=== PATIENT | male | born 1955 | race Caucasian/White ===

== ENCOUNTER → 2017-09-20 08:49 | Outpatient (CLI) | payer MEDICARE, SELFPAY ==
[2017-09-20 12:21] LABS: Absolute Lymphocyte Count 1.12 X10^3/ul (0.83-4.51); Absolute Neutrophil Count 4.4 X10^3/uL (2.0-7.7); Basophil# 0.04 X10^3/uL; Basophil% 0.6 % (0-1); Eosinophil# 0.05 X10^3/uL; Eosinophils% 0.8 % (0-5); Hematocrit 45.6 % (40-54); Hemoglobin 15.4 g/dl (13.0-16.5); Lymphocyte # 1.12 X10^3/ul (4.0); Mean Corp Hgb Conc 33.8 g/gl (32-36); Mean Corpuscular Hgb 31.9 pg (27.0-32.0); Mean Corpuscular Volume 94.4 fL (80-94); Mean Platelet Vol. 10.5 fl (6.2-12.0); Neutrophil # 4.37 X10^3/uL (2.7-7.7); Neutrophil % 70.2 % (47-70); Platelet Count 234 K/mm3 (150-450); RBC Distribution Width CV 14.2 % (11.6-14.6); RBC Distribution Width SD 47.2 fl (35.1-43.9); Red Blood Count 4.83 M/mm3 (4.6-6.2); White Blood Count 6.2 K/mm3 (4.4-11.0)
[2017-09-20 12:22] LABS: POSITIVE COUNT YES; POSITIVE DIFFERENTIAL NO; POSITIVE MORPHOLOGY YES
[2017-09-20 12:42] LABS: Insulin 31.7 mU/L (2.6-37.6)
[2017-09-20 13:15] LABS: Hemoglobin A1c 5.9 % (4.2-6.3)
[2017-09-20 13:18] LABS: Vitamin D,25 Hydroxy 17.9 ng/mL (29.95-100.01)
[2017-09-20 13:36] LABS: ALB/GLOB Ratio 1.3 RATIO (0.9-2.4); AST(SGOT) 29 U/L (15-37); Alanine Aminotransfer ALT/SGPT 58 U/L (16-61); Albumin, Serum 4.4 g/dL (3.2-5.0); Alkaline Phosphatase 55 U/L (45-117); Anion Gap 7 (5-15); BUN 21 mg/dL (7-18); BUN/Creat Ratio 16.5 RATIO (10-20); Calcium,Total 9.1 mg/dL (8.5-10.1); Chloride 108 mmol/L (98-107); Creatinine, Serum 1.27 mg/dL (0.70-1.30); EST Glomerular Filtration Rate 62 mL/min (>60); Est Glom Filt Rate - Afr Amer 74 mL/min (>60); Free T3 3.4 pg/mL (2.18-3.98); Globulin 3.5 g/dL (2.2-4.2); Glucose 112 mg/dL (74-106); Potassium 4.3 mmol/L (3.5-5.1); Protein, Total 7.9 g/dL (6.4-8.2); Sodium Level 138 mmol/L (136-145); T4 Free Direct 1.01 ng/dL (0.76-1.46); Thyroid Stim Hormone (TSH) 0.72 uIU/mL (0.358-3.74)
[2017-09-21 12:02] LABS: Pathologist Review Reviewed
[2017-09-22 11:32] LABS: Lipoprotein A <10 nmol/L (<75)
[2017-09-23 20:07] LABS: CHOLESTEROL TOTAL 271 mg/dL (100-199); HDL-C 24 mg/dL (>39); SMALL LDL-P 1839 nmol/L (<=527); TRIGLYCERIDES 877 mg/dL (0-149)
[2017-09-24 11:31] LABS: LDL SIZE 19.8 nm (>20.5); LDL-P 2361 nmol/L (<1000); LP-IR SCORE ** 81 (<=45)
== END ==
PROVIDERS: Family Provider Family Medicine; PCP Family Medicine; Visit Provider Internal Medicine Endocrinology, Diabetes & Metabolism
DX: E78.1 Pure hyperglyceridemia (principal)
CPT/HCPCS: 36415; 80053; 80061; 82306; 83036; 83525; 83695; 83704; 84439; 84443; 84481; 85025

== ENCOUNTER → 2017-11-24 08:54 | Outpatient (CLI) | payer MEDICARE, SELFPAY ==
[2017-11-24 12:01] LABS: Absolute Lymphocyte Count 1.47 X10^3/ul (0.83-4.51); Absolute Neutrophil Count 4.2 X10^3/uL (2.0-7.7); Basophil# 0.04 X10^3/uL; Basophil% 0.6 % (0-1); Eosinophil# 0.07 X10^3/uL; Eosinophils% 1.1 % (0-5); Hematocrit 45.7 % (40-54); Lymphocyte # 1.47 X10^3/ul (4.0); Lymphocyte % 22.8 % (19-41); Mean Corp Hgb Conc 32.8 g/gl (32-36); Mean Corpuscular Hgb 31.1 pg (27.0-32.0); Mean Corpuscular Volume 94.6 fL (80-94); Monocyte# 0.55 X10^3/uL; Monocyte% 8.5 % (0-10); Neutrophil # 4.23 X10^3/uL (2.7-7.7); Neutrophil % 65.6 % (47-70); Platelet Count 265 K/mm3 (150-450); RBC Distribution Width CV 14.1 % (11.6-14.6); RBC Distribution Width SD 47.6 fl (35.1-43.9); Red Blood Count 4.83 M/mm3 (4.6-6.2); White Blood Count 6.5 K/mm3 (4.4-11.0)
[2017-11-24 12:06] LABS: POSITIVE COUNT NO; POSITIVE DIFFERENTIAL NO; POSITIVE MORPHOLOGY NO
[2017-11-24 12:31] LABS: Hemoglobin A1c 5.9 % (4.2-6.3)
[2017-11-24 12:38] LABS: ALB/GLOB Ratio 1.1 RATIO (0.9-2.4); AST(SGOT) 35 U/L (15-37); Alanine Aminotransfer ALT/SGPT 77 U/L (16-61); Albumin, Serum 4.5 g/dL (3.2-5.0); Alkaline Phosphatase 48 U/L (45-117); Anion Gap 7 (5-15); BUN 22 mg/dL (7-18); Calcium,Total 10.2 mg/dL (8.5-10.1); Chloride 106 mmol/L (98-107); Creatinine, Serum 1.22 mg/dL (0.70-1.30); EST Glomerular Filtration Rate 64 mL/min (>60); Est Glom Filt Rate - Afr Amer 78 mL/min (>60); Glucose 87 mg/dL (74-106); Potassium 4.6 mmol/L (3.5-5.1); Protein, Total 8.5 g/dL (6.4-8.2); Sodium Level 139 mmol/L (136-145); Thyroid Stim Hormone (TSH) 1.19 uIU/mL (0.358-3.74)
== END ==
PROVIDERS: PCP Family Medicine; Visit Provider Internal Medicine Endocrinology, Diabetes & Metabolism
DX: R73.03 Prediabetes (principal)
CPT/HCPCS: 36415; 80053; 83036; 84443; 85025

== ENCOUNTER → 2017-12-25 16:07 | Outpatient (CLI) | payer OTHER, SELFPAY ==
--- NOTE | 2017-12-25 16:14 | MRI_ITS ---
STUDY: MRI LUMBAR SPINE WITHOUT CONTRAST REASON FOR EXAM: Male, 62 years old. DDD,DISC DISPLACEMENT. Left foot numbness, stabbing back pain and lateral knee pain. PRior surgery 1997. TECHNIQUE: Standardized fat and water weighted pulse sequences were obtained in the sagittal and axial planes. COMPARISON: None FINDINGS: T12-L1: Normal endplates. Normal disc height, hydration and morphology. Normal bilateral facet joints. Normal central canal and bilateral lateral recesses. Normal bilateral intervertebral neural foramina. There is straightening of the normal lumbar lordosis. There is no substantial scoliosis. Normal conus medullaris that terminates at the L1/L2 L1-2: There is mild disc space narrowing and endplate spondylosis. There is a minimal disc bulge without significant central canal or foraminal stenosis. L2-3: There is mild disc space narrowing and endplate spondylosis. There is a minimal disc bulge without significant central canal or foraminal stenosis. L3-4: There is mild disc space narrowing and endplate spondylosis. There is a moderate disc bulge with left paracentral extrusion resulting in severe left lateral recess narrowing. There is bilateral facet hypertrophy with mild central canal stenosis. There is mild bilateral foraminal stenosis. L4-5: There is moderate disc space narrowing and endplate spondylosis. There is a moderate disc bulge with small central extrusion and facet arthropathy with mild central canal stenosis. There is mild bilateral foraminal stenosis. L5-S1: There is moderate disc space narrowing and endplate spondylosis. There is minimal retrolisthesis and disc bulging without significant central stenosis. There is mild bilateral foraminal stenosis. Normal visualized sacral ala. Normal visualized paraspinous soft tissue structures. MRI/Spine Lumbar (Routine) IMPRESSION: L3/L4: Disc extrusion with severe left lateral disc narrowing. L4/L5: Small extrusion with mild central canal stenosis. Electronically Signed: Aydin Laird MD at 10:51 EDT Tel , Service support ,
== END ==
PROVIDERS: Family Provider Family Medicine; PCP Family Medicine; Visit Provider Anesthesiology Pain Medicine
DX: M51.26 Other intervertebral disc displacement, lumbar region (principal); M51.27 Other intervertebral disc displacement, lumbosacral region; M51.37 Other intervertebral disc degeneration, lumbosacral region; S33.5XXA Sprain of ligaments of lumbar spine, initial encounter; M53.2X8 Spinal instabilities, sacral and sacrococcygeal region; S33.6XXA Sprain of sacroiliac joint, initial encounter
CPT/HCPCS: 72148

== ENCOUNTER → 2018-02-07 15:54 | Outpatient (CLI) | payer MEDICARE, SELFPAY ==
[2018-02-07 16:16] LABS: CREATININE FINGERSTICK 0.8 mg/dL (0.70-1.30); EGFR FINGERSTICK > 60.0000 mL/min (>60)
== END ==
PROVIDERS: Family Provider Family Medicine; PCP Family Medicine; Visit Provider Family Medicine
DX: Z01.812 Encounter for preprocedural laboratory examination (principal); R63.4 Abnormal weight loss
CPT/HCPCS: 71260; 74177; Q9967

== ENCOUNTER → 2018-03-01 08:51 | Outpatient (CLI) | payer MEDICARE, SELFPAY ==
[2018-03-01 12:38] LABS: ALB/GLOB Ratio 1.1 RATIO (0.9-2.4); AST(SGOT) 15 U/L (15-37); Alanine Aminotransfer ALT/SGPT 29 U/L (16-61); Alkaline Phosphatase 52 U/L (45-117); Anion Gap 7 (5-15); BUN 22 mg/dL (7-18); BUN/Creat Ratio 22.7 RATIO (10-20); Calcium,Total 9.6 mg/dL (8.5-10.1); Chloride 108 mmol/L (98-107); Cholesterol 291 mg/dL (200); Creatinine, Serum 0.97 mg/dL (0.70-1.30); EST Glomerular Filtration Rate 84 mL/min (>60); Est Glom Filt Rate - Afr Amer 102 mL/min (>60); Globulin 3.5 g/dL (2.2-4.2); Glucose 112 mg/dL (74-106); High Density Lipoprotein 28 mg/dL; Potassium 4.4 mmol/L (3.5-5.1); Protein, Total 7.5 g/dL (6.4-8.2); Sodium Level 144 mmol/L (136-145); Triglycerides 510 mg/dL
[2018-03-01 12:40] LABS: Hemoglobin A1c 5.4 % (4.2-6.3)
== END ==
PROVIDERS: Family Provider Family Medicine; PCP Family Medicine; Visit Provider Internal Medicine Endocrinology, Diabetes & Metabolism
DX: E78.1 Pure hyperglyceridemia (principal)
CPT/HCPCS: 36415; 80053; 80061; 83036

== ENCOUNTER → 2018-03-26 08:35 | Outpatient (CLI) | payer MEDICARE, SELFPAY ==
--- NOTE | 2018-03-26 09:00 | PET_ITS ---
EXAMINATION: FDG PET/CT INDICATIONS: 62-year-old male with reported history of pulmonary nodularity. COMPARISON EXAMINATION: CT of the chest, abdomen and pelvis reports 02/07/2018 INDEX LESION SIZE SUV INTERPRETATION Right lower anteromedial lung field, right middle lobe 30.6 (frame 167) 4.5 Fulfills quantitative criteria for viable neoplasm Carinal, subcarinal mediastinum, right thoracic perihilum, aorticopulmonary window 24.4-mm (largest) (frame 177) 7.5 (max) Fulfills quantitative criteria for viable neoplasm Right and left hemithorax pulmonary parenchyma 1.8 (max) Quantitative criteria for viable neoplasm are not fulfilled TECHNIQUE: Following the intravenous administration of mCi of F-18 deoxyglucose via the , multiplanar image acquisitions of the neck, chest, abdomen and pelvis to level of mid thigh, obtained at one hour post radiopharmaceutical administration contemporaneously interpreted with the current CT of the neck, chest, abdomen and pelvis to level of mid thigh, dated 03/26/18 via coregistration reveal: FINDINGS: 1. Enhanced FDG concentration is defined in the right lower anteromedial lung field, right middle lobe demonstrating a calculated maximum standard uptake value of 4.5. The maximal axial diameter of the corresponding parenchyma density on review of CT of the chest dated 03/26/2018 is 30.6 mm. 2. Facilitated radiopharmaceutical uptake is demonstrated in the carinal and subcarinal mediastinum, right thoracic perihilum and aorticopulmonary window. The calculated maximum standard uptake value is 7.5. The largest corresponding soft tissue density demonstrates a maximal axial diameter of 24.4 millimeters. 3. There is mild increased glucose concentration observed in the right mid posterolateral hemithorax pulmonary parenchyma, right lower lobe, the left lower lateral hemithorax pulmonary parenchyma, left lower lobe generating a calculated maximal standard uptake value of 1.8. Quantitative criteria for viable neoplasm are not fulfilled. 4. Normal physiologic distribution of the radiopharmaceutical is apparent in the hepatic and splenic parenchyma, both renal units, bladder and visualized intestinal tract. The visualized portion of the cerebral cortex demonstrate symmetric and preserved glucose metabolism. Diffuse radiopharmaceutical concentration is noted in all four quadrants of the abdomen and pelvis. Pertinent CT findings are as follows: CHEST: There are no additional parenchymal densities-nodules demonstrating quantitatively significant enhanced glucose metabolism. There is atherosclerotic calcification defined in the thoracic aorta without evidence of dilatation-aneurysm formation. Coronary arterial calcification is observed. Subcentimeter bilateral axillary soft tissue densities are ametabolic. ABDOMEN AND PELVIS: There is atherosclerotic calcification defined in the abdominal aorta without evidence of dilatation-aneurysm formation. Pelvic arterial calcification is observed. Right-left subcentimeter inguinal soft tissue densities are non-glucose avid. Colonic diverticulosis is demonstrated. Calcifications are defined in the bilateral lower hemipelvis. SKELETAL: Degenerative changes are noted in the cervical, thoracic and lumbar spine. PET/PET/CT Tumor Base -Thigh Init IMPRESSION: 1. ABNORMAL EXAMINATION INDICATIVE OF MALIGNANT VIABLE NEOPLASM. 2. Increased glucose concentration noted in the right lower anterior hemithorax, right middle lobe, fulfills quantitative criteria for viable neoplasm. (Delacruz et al, Annals of Internal Medicine, 138:724, 2003). 3. 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 (Josse et al, Journal of Clinical Oncology 16:2142, 1998). 4. Facilitated FDG uptake defined in the right mid posterolateral lung zone-right lower lobe and left lower lateral lung field, left lower lobe, do not fulfill quantitative criteria for viable neoplasm. Electronic Signature Ayush Whipple D.O. Electronically Signed: Ayush Whipple DO at 23:38 EDT Tel , Service support ,
== END ==
PROVIDERS: Family Provider Family Medicine; PCP Family Medicine; Visit Provider Family Medicine
DX: R91.1 Solitary pulmonary nodule (principal)
CPT/HCPCS: 78815; A9552

== ENCOUNTER → 2018-04-06 08:44 | Outpatient (CLI) | payer MEDICARE, SELFPAY ==
[2018-04-06 12:20] LABS: Erythrocyte Sedimentation Rate 21 mm/hr (0-20)
== END ==
PROVIDERS: Family Provider Family Medicine; PCP Family Medicine; Visit Provider Internal Medicine Pulmonary Disease
DX: R91.1 Solitary pulmonary nodule (principal); J18.9 Pneumonia, unspecified organism; R59.9 Enlarged lymph nodes, unspecified
CPT/HCPCS: 36415; 82164; 85652; 86698; 87385

== ENCOUNTER 2018-04-24 10:17 | Emergency (ER) | payer OTHER, MEDICARE, SELFPAY ==
[2018-04-24 10:18] VITALS: BP 187/119; PULSE 96; RESP 16; TEMP 36.7; O2SAT 98
--- NOTE | 2018-04-24 10:42 | ED.DCSUM_ITS ---
- ER Visit Summary Date of Service: 04/24/18 Chief Complaint: Back pain History of Present Illness: The patient is a 62 M sent from pain management Dr. Stockton for increasing left lower back pain after nerve block performed in the office at 9 AM this morning. Still with chronic back pain, on Percocet . He states he has been having increasing pain since his initial nerve block 2 months ago. He follows up today for additional nerve block, has chronic radicular pain down his left leg. States pain to the calf. Pain increase and difficulty ambulating since this procedure. Initial plan was for patient to rock picker Dilaudid from pharmacy and go back to the office for injection however he was then directed to the emergency Department for medication. Denies any loss of bowel or bladder control. States an MRI was performed recently, he has a appointment with neurosurgeon Dr. gold in 7 days. 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 Physical Examination: General: Alert and oriented ?3, uncomfortable lying on belly. Able to turn to side and back. HEENT: Normocephalic, atraumatic. Moist mucosa membranes Neck: supple, nontender. Cardiovascular: Regular rate and rhythm, no murmurs Respiratory: Normal breath sounds, symmetric, no distress Abdomen: Soft, nontender, nondistended back: has Betadine stain lower lumbar, bandaged left lower lumbar, wounds with no active bleeding or drainage. Extremities: Nontender, no edema, pulses intact ?4 Neuro: no focal neurological deficits. Test Results: [] Emergency Department Course and Treatment: Patient with no cauda equina symptoms. Status post nerve block with increasing pain. Treated with subcu Dilaudid of 2 mg. Interim did discuss with his pain management physician Dr. Stockton, report should not have complications with the injection itself and with Lovenox. He states only 25-gauge needle was used. Reports that he would increase pain management until his follow-up with the surgeon. Reevaluation patient did have some improvement was able to stand and ambulate with mild discomfort. He states cramp and spasm in his leg. Discussed option for muscle relaxer which he states he is tolerated Valium given 1 dose in the ED. He has an appointment tomorrow with Dr. Stockton. He will keep that appointment. He did not want to increase his opiates. He will discussed the plan tomorrow in the office. Treatment Plan: [] Disposition: Discharge Impression: 1. Acute on chronic back pain This note was generated with [employer] dictation software. It may contain incorrect words, spelling, and punctuation that were not noted in review of the chart prior to signing ED Disposition - Plan for ED Patient: Disposition: Home or Assisted Living Chief Complaint: Back Diagnosis: Acute exacerbation of chronic low back pain Instructions: ED Sciatica Referrals: Edward Villa MD [Primary Care Provider] - Additional Instructions: Keep appointment with Dr. Tan tomorrow to discuss your options for management of symptoms.
[2018-04-24] MEDS: HYDROmorphone 1 MG/ML Syringe 2 MG SC (10:48)
[2018-04-24] MEDS: diazePAM 5 MG Tablet PO (11:42)
== END 2018-04-24 12:16 | disposition home or self-care (01) ==
PROVIDERS: Emergency Provider Emergency Medicine; Family Provider Family Medicine; PCP Family Medicine
DX: M54.9 Dorsalgia, unspecified (principal); G89.29 Other chronic pain; E11.9 Type 2 diabetes mellitus without complications; Z79.01 Long term (current) use of anticoagulants; Z86.711 Personal history of pulmonary embolism; Z86.718 Personal history of other venous thrombosis and embolism
CPT/HCPCS: 99283

== ENCOUNTER → 2018-05-01 14:42 | Outpatient (CLI) | payer OTHER, SELFPAY ==
--- NOTE | 2018-05-01 14:44 | RAD_ITS ---
STUDY: X-RAY - LUMBAR SPINE REASON FOR EXAM: Male, 62 years old. Lower back pain. TECHNIQUE: 4 view(s) of the lumbar spine were obtained. COMPARISON: MRI of the lumbar spine, December 25, 2017. FINDINGS: Normal lumbar lordosis. There is no substantial scoliosis. There is a normal alignment of the vertebrae. There is endplate spondylosis most marked at L5-S1. There is disc space narrowing, most marked at L5-S1. There is no evidence of acute fracture or loss of vertebral axial height. The soft tissue structures are unremarkable. RAD/L/S Spine Min 4 Views IMPRESSION: Degenerative changes of the lumbar spine. Electronically Signed: Mayco Douglas DO at 20:52 EST Tel [phone], Service support ,
--- OUTSIDE RECORDS SUMMARY | 2018-06-27 06:33 | XMS RPT_ITS ---
:1955 Author Organization OHIP Support Name Relationship Address Phone JOSIE NOLAND Unavailable [address] + [place] [address] D Unavailable Unavailable Unavailable ALEXI NOLANDIE Unavailable [address] + [place] [address] D Unavailable Unavailable Unavailable ALEXI NOLANDIE Unavailable [address] + [place] [address] D Unavailable Unavailable Unavailable NOLAND, JOSIE Unavailable [address] + [place] [address] D Unavailable Unavailable Unavailable NOLAND, JOSIE Unavailable [address] + [place] [address] D Unavailable Unavailable Unavailable NOLAND, JOSIE Unavailable [address] + [place] [address] D Unavailable Unavailable Unavailable NOLAND, JOSIE Unavailable [address] + [place] [address] D Unavailable Unavailable Unavailable NOLAND, JOSIE Unavailable [address] + [place] [address] D Unavailable Unavailable Unavailable NOLAND, JOSIE Unavailable [address] + [place] [address] D Unavailable Unavailable Unavailable NOLAND, JOSIE Unavailable [address] + [place] [address] D Unavailable Unavailable Unavailable ALEXI NOLANDIE Unavailable [address] + [place] [address] D Unavailable Unavailable Unavailable NOLAND, JOSIE Unavailable [address] + [place] [address] D Unavailable Unavailable Unavailable Care Team Providers Name Role Phone Chanelle Jay Attending Unavailable Edward Villa Primary Care Unavailable Raghunathan, Chanelle N. Attending Unavailable Allen, Edward Primary Care Unavailable Ragtawny, Chanelle N. Attending Unavailable Allen, Edward Primary Care Unavailable Mayra Stockton Attending Unavailable Mayra Stockton Referring Unavailable Allen, Edward Primary Care Unavailable Allen, Edward Attending Unavailable Allen, Edward Primary Care Unavailable Allen, Edward Attending Unavailable Allen, Edward Referring Unavailable Allen, Edward Primary Care Unavailable Augietawny, Chanelle NSean Attending Unavailable Allen, Edward Primary Care Unavailable Allen, Edward Attending Unavailable Allen, Edward Primary Care Unavailable Sibilia, Kush Attending Unavailable Allen, Edward Primary Care Unavailable Allen, Edward Primary Care Unavailable Martin Wright Attending Unavailable Randa Javier Attending Unavailable Allen, Edward Referring Unavailable Randa Javier Attending Unavailable Randa Javier Referring Unavailable Allen, Edward Primary Care Unavailable PROBLEMS PROBLEMS DATE TYPE CONDITION / CODE ATTENDING STATUS SOURCE 05/01/2018 Unknown M54.5 - Low back pain Randa Javier Active Jes / M54.5(ICD-10) [facility] [place] Repository 04/16/2018 Unknown R91.1 - Solitary Sibilia, Active Jes pulmonary nodule / [facility] R91.1(ICD-10) Hospital Repository 11/24/2017 Unknown R73.03 - Prediabetes / Raghunathan, Active Jes R73.03(ICD-10) [facility] [place] [facility]/20[facility]2017 Unknown E78.1 - Pure Raghunathan, Active Jes hyperglyceridemia / Chanelle N. [facility] E78.1(ICD-10) Hospital Repository PROCEDURES PROCEDURES No Procedure Records FoundRESULTS RESULTS CBC W/DIFF, AUTOMATED Collected: 05/21/2018 Status: C Source: JES 8:47 AM [facility] [place] REPOS[place] TYPE CODE TESTS RESULT OUT OF RANGE REFERENCE UNITS LAB L100.1000 4.4-11.0 K/mm3 Normal WBC 6.1 LAB L100.1200 4.6-6.2 M/mm3 Low RBC 4.50 LAB L100.1300 13.0-16.5 g/dl Normal HGB 14.2 LAB L100.1400 40-54 % Normal HCT 44.0 LAB L100.1500 80-94 fL High MCV 97.8 LAB L100.1600 27.0-32.0 pg Normal MCH 31.6 LAB L100.1700 32-36 g/gl Normal MCHC 32.3 LAB L100.1810 11.6-14.6 % Normal RDW CV 14.0 LAB L100.1820 35.1-43.9 fl High RDW SD 50.1 LAB L100.1900 150-450 K/mm3 Normal PLT 199 LAB L100.2000 6.2-12.0 fl Normal MPV 9.9 LAB L100.2100 47-70 % Normal NEUT% 61.0 LAB L100.2200 19-41 % Normal LY% 28.1 LAB L100.2300 0-10 % Normal MONO% 6.7 LAB L100.2400 0-5 % Normal EO% 1.3 LAB L100.2500 0-1 % Normal BASO% 0.3 LAB L100.2550 0.0-0.9 % High IM GRAN % 2.600 Result Comment: IG% - Immature Granulocytes (promyelocytes, myelocytes and metamyelocytes) > 1% indicates that a LEFT SHIFT is Present. LAB L100.2620 2.0-7.7 X10 3/uL Normal Absolute Neut 3.7 LAB L100.2720 0.83-4.51 X10 3/ul Normal Absolute Lymph 1.72 LAB L100.9900 Normal PATH REV Reviewed Result Comment: AMENDED REPORT 05/22/18 1444 PATH REV previously reported as: Saira velazquez Performed By: #### L100.0100 #### [facility] [address] [place], [place], [address] COMPREHENSIVE METABOLIC Collected: 05/21/2018 Status: F Source: [facility] 8:47 AM [facility] [place] REPOSITORY TYPE CODE TESTS RESULT OUT OF RANGE REFERENCE UNITS LAB L501.0100 74-106 mg/dL Normal GLU 95 Result Comment: Please note revised GLUCOSE reference range effective 2017. LAB L501.1000 7-18 mg/dL High BUN 20 LAB L501.1100 0.70-1.30 mg/dL Normal CREAT,SERUM 1.09 Result Comment: The validity of the calculated GFR AND GFRAA in patients over 70 years has not been determined. Clinical correlation is essential. LAB L501.1110 >60 mL/min Normal EST GFR 73 Result Comment: Non- GFR Calc LAB L501.1115 >60 mL/min Normal EST GFR - AA 89 Result Comment: GFR Calc LAB L501.1300 10-20 RATIO Normal BUN/CRE 18.3 LAB L501.1500 6.4-8.2 g/dL T Normal PROT 7.4 LAB L501.1800 3.2-5.0 g/dL Normal ALB 3.8 LAB L501.1950 2.2-4.2 g/dL Normal GLOB 3.6 LAB L501.2000 0.9-2.4 RATIO Normal A/G 1.1 LAB L501.2200 8.5-10.1 mg/dL CA Normal 9.5 LAB L501.4100 15-37 U/L Normal AST 17 LAB L501.4305 45-117 U/L Normal ALK P 48 LAB L501.4405 16-61 U/L Normal ALT 29 LAB L501.4600 0.20-1.00 mg/dL T Normal BILI 0.20 LAB L501.5300 136-145 mmol/L High NA 146 LAB L501.5600 3.5-5.1 mmol/L K Normal 4.2 LAB L501.5900 98-107 mmol/L High CL 108 LAB L501.6100 21.0-32.0 mmol/L Normal CO2 29.0 LAB L501.6200 5-15 Normal GAP 9 Performed By: #### L500.4050, L500.4100 #### [facility] [address] [place], [place], [address] LIPID PROFILE Collected: 05/21/2018 Status: F Source: [place] 8:47 AM [facility] [place] REPOSITORY TYPE CODE TESTS RESULT OUT OF RANGE REFERENCE UNITS LAB L501.4900 200 mg/dL High CHOL 298 Result Comment: <200 mg/dL Desirable 200-240 mg/dL Borderline >240 mg/dL High Risk LAB L501.5000 mg/dL High TRIG 576 Result Comment: The drugs N-Acetylcysteine and Metamizole may falsely depress this assay. TRIGLYCERIDE IS GREATER THAN 400 mg/dL. LDL RESULT IS INVALID AND WILL NOT BE REPORTED. Serum Triglycerides Reference Interval Normal <150 mg/dL Borderline high 150 - 199 mg/dL High 200 - 499 mg/dL Very High > or = 500 mg/dL LAB L501.6400 mg/dL Low HDL 27 Result Comment: The drugs N-Acetylcysteine and Metamizole may falsely depress this assay. Reference Range HDL <40 mg/dL Low HDL Cholesterol HDL >or= 60 mg/dL High HDL Cholesterol LAB L501.6500 0-130 mg/dL Test Normal not performed LDL LAB L501.6600 5-40 mg/dL Test Normal not performed VLDL Performed By: #### L500.4050, L500.4100 #### [facility] [address] [place], [address] HEMOGLOBIN A1C Collected: 05/21/2018 Status: F Source: [place] 8:47 AM [facility] [place] REPOSITORY TYPE CODE TESTS RESULT OUT OF RANGE REFERENCE UNITS LAB L501.9985 4.2-6.3 % Normal HGB A1C 5.5 Performed By: #### L501.9985 #### [facility] [address] [place], [address] ORTHOPEDIC VISIT Observed: 05/12/2018 Status: F Source: [place] REPORT 11:51 AM [facility] REPOSITORY [facility] [address] [place] [address] OFFICE VISIT Date of Service: 05/01/18 MR#: [id number] Acct: [id number] Name: JOE NOLAND Rep #: [id number] : 1955 Provider: Randa Javier MD Age/Sex: 62/M Location: [facility] [place] Status: Signed Intake Vital Signs05/01/18 Body Mass Index (BMI) 20.0 Intake Visit Reasons: LOW BACK PAIN Is patient in pain?: Yes Pain scale (1-10): 7 Allergies duloxetine [From Cymbalta] Allergy (Verified 05/01/18 14:24) anxiety Medications cyclobenzaprine 5 mg tablet 5 mg PO TID PRN 05/01/18 [History Confirmed 05/01/18] enoxaparin 300 mg/3 mL subcutaneous solution 60 mg SC Q12H 05/01/18 [History Confirmed 05/01/18] metformin 500 mg tablet 500 mg PO BID 05/01/18 [History Confirmed 05/01/18] oxycodone-acetaminophen 10 mg-325 mg tablet 1 tab PO Q6H PRN 05/01/18 [History Confirmed 05/01/18] PFSH Surgical History h/o back surgery (Acute) Social History Smoking Status: Never smoker HPI LOW BACK PAIN: Details: JOE NOLAND is a 62 year old RHD M here today for low back pain 10% and left buttock, lateral thigh and anterolateral calf to heel pain 90%. Patient notes that he has a work injury in 1997. He had back surgery in 1997. Patient notes that Dr Segovia had a microdiscectomy at L4-L5 which was very helpful to his pain. He denies postoperative complications. He does not recall if the original leg pain was on the right or left side. He then was caught in a machine in 2010 which made his pain worse. Patient sees Dr Stockton for injections and has for the past 5 years. Patient notes that the injections are helpful. He is unsure if he wants to continue with injections. He went to the ED following his last injection last week due to burning during the injection. Patient has increased pain with any activities, and sometimes even ambulation and sleeping. It is improved with chiropractic treatment, laying and standing. He does do a home exercise program. He is currently on percocet 10/325 BID. He has tried neurontin without relief. He states toradol helps. He last did physical therapy in , which worsened his pain. Patient has seen a chiropractor. Patient denies working currently. He takes percocet for pain. He denies bowel or bladder issues. He does not use a gait aid. He denies dexterity issues. He is disabled. 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 He has failed oral anticoagulation per the patient. 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 He has prediabetes. He deneis nicotine use. ROS Const Reports system reviewed and no additional complaints, except as docu Eyes Reports system reviewed and no additional complaints, except as docu ENT Reports system reviewed and no additional complaints, except as docu Card Reports system reviewed and no additional complaints, except as docu Resp Reports system reviewed and no additional complaints, except as docu GI Reports system reviewed and no additional complaints, except as docu Reports system reviewed and no additional complaints, except as docu Musc Reports back pain, Reports numbness, Reports radiating pain into limb Skin/Breast Reports system reviewed and no additional complaints, except as docu Neuro Yes system reviewed and no additional complaints, except as docu, Yes numbness Psych Reports system reviewed and no additional complaints, except as docu Endo Reports system reviewed and no additional complaints, except as docu Ortho Exam Spine Neuro: Yes Clonus (negative bilaterally), Bustamante's (negative bilaterally) and Babinski (downgoing bilaterally) General: alert, oriented x3 Skin: Yes healed (right sided midline incision) Capillary Refill <2sec: Yes Palpable Pulses: 2+ dp/pu pulses bilaterally Gait: normal gait, other (able to heel and toe walk. normal tandem gait) Sensory Exam: no sensory deficits noted DTR's: Rt Triceps: 2+, Lt Triceps: 2+, Rt Biceps: 2+, Lt Biceps: 2+, Rt Brachioradialis: 2+, Lt Brachioradialis: 2+, Rt Patellar: 2+, Lt Patellar: 2+, Rt Ankle: 2+, Lt Ankle: 2+ Plantar Reflexes: Downgoing: bilateral Coordination: tandem gait normal, Romberg test normal SPINE TESTING CERVICAL THORACIC LUMBAR SLR: Negative Musculoskeletal General: Yes normal gait Cervical Spine: cervical ROM normal Thoracic/Lumbar Spine: pain with thoraco-lumbar ROM (equal pain with lumbar extension and flexion), thoraco-lumbar ROM limited, paraspinal tenderness, lumbar spinal tenderness Strength 0=absent - 5=normal Deltoid R (C5): 5, Deltoid L (C5): 5, R Bicep (C5-6): 5, L Bicep (C5-6): 5, R Wrist Extensor (C6): 5, L Wrist Extensor (C6): 5, R Tricep (C7): 5, L Tricep (C7): 5, R Finger Flexors (C8): 5, L Finger Flexors (C8): 5, R First Dorsal Interossei (C8): 5, L First Dorsal Interossei (C8): 5, R Hip Flexor (L1-3): 5, L Hip Flexor (L1-3): 4, R Quadriceps (L2-4): 5, L Quadriceps (L2-4): 4, R Anterior Tibialis (L4-5): 5, L Anterior Tibialis (L4- 5): 4, R Hamstrings (L5-S1): 5, L Hamstrings (L5-S1): 5, GS (S1): 5, L GS (S1): 5, R Peroneals (S1): 5, L Peroneals (S1): 5 Assessment AND Plan Problems 1. Lumbar radiculopathy M54.16 Plan Imaging: XR lumbar spine 05/01/2018 reveals diffuse spondylosis MRI lumbar spine without contrast 12/25/2017 reveals diffuse spondylosis with left L3-4 disc herniation. evidence of prior L4 hemilaminotomy. I/R/P: 1. back pain 2. left leg pain and weakness 3. prior right L4-5 hemilaminotomy 4. history of DVt/PE on lovenox, recalcitrant to oral anticoagulants Mr. Noland presents with back pain and left leg pain. His MRI reveals lumbar radiculopathy. The natural history and course of the symptomatology of lumbar radiculopathy was discussed in detail with the patient. I answered all questions regarding the mode of onset, pathophysiology, symptoms, imaging findings, treatment options (both non-operative and operative) regarding his diagnosis. He has failed physical therapy and medications. He has near global weakness of the left lower extremity and his pain has been present for nearly 1 year. Would recommend an MRI lumbar spine with contrast given his prior history. Recommend EMG of the bilateral lower extremity given the unclear time frame of his neurological changes. Follow up after the above or sooner if issues arise. Plan of care discussed. All questions answered. The patient verbalized understanding of the disease process and agreed to the treatment plan formulated for this visit. Orders Orders: Coding Level of Care Code Off vis,new,level 4 Diagnoses Lumbar radiculopathy M54.16 05/12/18 1151 <Electronically signed by Randa Javier MD> Date Randa Javier MD Cosigner Signature: Date (if applicable) CC: Mayra Stockton MD L/S SPINE MIN 4 Observed: 05/01/2018 Status: F Source: [facility]ES VIEWS 2:44 PM [facility] REPOSITORY [facility] Imaging Services [address] [place] [place] [address] L/S Spine Min 4 Views MR#: [id number] Acct: [id number] Name: JOE NOLAND Rep #: [id number] : 1955 M 62 From: Mayco Douglas DO PCP: Edward Villa MD Status: REG CLI Study: L/S Spine Min 4 Views Date of Exam: 05/01/18 Exam# [id number] Ordering Dr: Randa Javier MD STUDY: X-RAY - LUMBAR SPINE REASON FOR EXAM: Male, 62 years old. Lower back pain. TECHNIQUE: 4 view(s) of the lumbar spine were obtained. COMPARISON: MRI of the lumbar spine, December 25, 2017. FINDINGS: Normal lumbar lordosis. There is no substantial scoliosis. There is a normal alignment of the vertebrae. There is endplate spondylosis most marked at L5-S1. There is disc space narrowing, most marked at L5-S1. There is no evidence of acute fracture or loss of vertebral axial height. The soft tissue structures are unremarkable. RAD/L/S Spine Min 4 Views IMPRESSION: Degenerative changes of the lumbar spine. Electronically Signed: Mayco Douglas DO at 20:52 EST Tel [phone], Service support , CC: Randa Javier MD; Edward Villa MD [employer] Operator: Signed EMERGENCY DEPARTMENT Observed: 04/24/2018 Status: F Source: JES SUMMARY 11:50 AM [facility] REPOSITORY [facility] Medical Records Department [address] [place] [place] [address] Emergency Department Summary 04/24/18 1038 MR#: [id number] Acct: [id number] Name: JOE NOLAND Rep #: [id number] : 1955 62 From: Martin Davis PCP: Edward Villa MD Status: REG ER - ER Visit Summary Date of Service: 04/24/18 Chief Complaint: Back pain History of Present Illness: The patient is a 62 M sent from pain management Dr. Stockton for increasing left lower back pain after nerve block performed in the office at 9 AM this morning. Still with chronic back pain, on Percocet . He states he has been having increasing pain since his initial nerve block 2 months ago. He follows up today for additional nerve block, has chronic radicular pain down his left leg. States pain to the calf. Pain increase and difficulty ambulating since this procedure. Initial plan was for patient to pharmacy picking tech Dilaudid from pharmacy and go back to the office for injection however he was then directed to the emergency Department for medication. Denies any loss of bowel or bladder control. States an MRI was performed recently, he has a appointment with neurosurgeon Dr. javier in 7 days. 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 Physical Examination: General: Alert and oriented 3, uncomfortable lying on belly. Able to turn to side and back. HEENT: Normocephalic, atraumatic. Moist mucosa membranes Neck: supple, nontender. Cardiovascular: Regular rate and rhythm, no murmurs Respiratory: Normal breath sounds, symmetric, no distress Abdomen: Soft, nontender, nondistended back: has Betadine stain lower lumbar, bandaged left lower lumbar, wounds with no active bleeding or drainage. Extremities: Nontender, no edema, pulses intact 4 Neuro: no focal neurological deficits. Test Results: [] Emergency Department Course and Treatment: Patient with no cauda equina symptoms. Status post nerve block with increasing pain. Treated with subcu Dilaudid of 2 mg. Interim did discuss with his pain management physician Dr. Stockton, report should not have complications with the injection itself and with Lovenox. He states only 25-gauge needle was used. Reports that he would increase pain management until his follow-up with the surgeon. Reevaluation patient did have some improvement was able to stand and ambulate with mild discomfort. He states cramp and spasm in his leg. Discussed option for muscle relaxer which he states he is tolerated Valium given 1 dose in the ED. He has an appointment tomorrow with Dr. Stockton. He will keep that appointment. He did not want to increase his opiates. He will discussed the plan tomorrow in the office. Treatment Plan: [] Disposition: Discharge Impression: 1. Acute on chronic back pain This note was generated with [employer] dictation software. It may contain incorrect words, spelling, and punctuation that were not noted in review of the chart prior to signing ED Disposition - Plan for ED Patient: Disposition: Home or Assisted Living Chief Complaint: Back Diagnosis: Acute exacerbation of chronic low back pain Instructions: ED Sciatica Referrals: Edward Villa MD [Primary Care Provider] - Additional Instructions: Keep appointment with Dr. Tan tomorrow to discuss your options for management of symptoms. What to do if you have Problems For any increased pain, shortness of breath, bleeding, nausea or vomiting, chest pain, or any unexpected problems, contact your Primary Care Provider. Call [facility] ([phone]) or report to the closest Emergency Room. Call 911 if necessary. 04/24/18 1150 <Electronically signed by Martin Davis> Date Martin Davis Cosigner Signature (If Indicated): Date CC: Edward Villa MD MISCELLANEOUS LAB Collected: 04/06/2018 Status: F Source: [facility] PROCEDURE 8:47 AM [facility] [place] REPOSITORY Order Comment: Comments: QFT Test(s) Ordered: [id number] TYPE CODE TESTS RESULT OUT OF RANGE REFERENCE UNITS LAB L801.1541 Normal [facility] [place] Result Comment: TEST RESULT UNITS REF INTERVAL QFT-TB Plus (Client Incubated) QuantiFERON Criteria The QuantiFERON-TB Gold Plus result is determined by subtracting the Nil value from either TB antigen (Ag) tube. The mitogen tube serves as a control for the test. QuantiFERON TB1 Ag Value 0.02 IU/mL QuantiFERON TB2 Ag Value 0.02 IU/mL QuantiFERON Nil Value 0.03 IU/mL QuantiFERON Mitogen Value >10.00 IU/mL QuantiFERON-TB Gold Plus Negative Negative The specimen received for QuantiFERON testing was incubated by the ordering institution. Specific procedures outlined in our Directory of Services and in the package insert for the QuantiFERON Gold (In Tube) test must be followed to enable for proper stimulation of cells for the production of interferon gamma. TESTING PERFORMED AT [facility]. ORIGINAL REPORT ON FILE IN LAB CONTAINS ADDITIONAL TEST SITE INFORMATION. Performed By: #### L801.1541 #### [facility] [address] [facility] [place], [place], [address] ERYTHROCYTE SED RATE Collected: 04/06/2018 Status: F Source: [facility] 8:46 AM [facility] REPOSITORY TYPE CODE TESTS RESULT OUT OF RANGE REFERENCE UNITS LAB L102.0000 0-20 mm/hr High SED RATE 21 Performed By: #### L101.9900 #### [facility] [address] [facility] [place], [address] URINE HISTOPLASMA Collected: 04/06/2018 Status: F Source: [facility] ANTIGEN 8:46 AM [facility] REPOSITORY TYPE CODE TESTS RESULT OUT OF RANGE REFERENCE UNITS LAB L3100.0902 Normal UR HISTO AG Result Comment: TEST RESULT LIMITS Histoplasma Gal'janice Ag Ur Histoplasma Gal'janice Ag Ur <0.5 <0.5 ng/mL Disclaimer: This test was developed and its performance characteristics determined by [facility]. It has not been cleared or approved by the Food and Drug Administration. Angiotensin-Converting Enzyme YUE 24 U/L 14 - 82 Histoplasma Abs, Qn, DID Negative Neg:<1:1 TESTING PERFORMED AT [facility]. ORIGINAL REPORT ON FILE IN LAB CONTAINS ADDITIONAL TEST SITE INFORMATION. Performed By: #### L3100.0902 #### [facility] (refer to report for specific site) refer to report for address and phone number PET/CT TUMOR BASE Observed: 03/26/2018 Status: F Source: [facility] INIT 5:56 AM [facility] REPOSITORY [facility] Imaging Services [address] [place] [address] PET/CT Tumor Base -Thigh Init MR#: [id number] Acct: [id number] Name: JOE NOLAND Rep #: [id number] : 1955 62 From: Ayush Whipple DO PCP: Edward Villa MD Status: REG CL Study: PET/CT Tumor Base -Thigh Init Date of Exam: 03/26/18 Exam# [id number] Ordering Dr: Edward Villa MD EXAMINATION: FDG PET/CT INDICATIONS: 62-year-old male with reported history of pulmonary nodularity. COMPARISON EXAMINATION: CT of the chest, abdomen and pelvis reports 02/07/2018 INDEX LESION SIZE SUV INTERPRETATION Right lower anteromedial lung field, right middle lobe 30.6 (frame 167) 4.5 Fulfills quantitative criteria for viable neoplasm Carinal, subcarinal mediastinum, right thoracic perihilum, aorticopulmonary window 24.4-mm (largest) (frame 177) 7.5 (max) Fulfills quantitative criteria for viable neoplasm Right and left hemithorax pulmonary parenchyma 1.8 (max) Quantitative criteria for viable neoplasm are not fulfilled TECHNIQUE: Following the intravenous administration of mCi of F-18 deoxyglucose via the , multiplanar image acquisitions of the neck, chest, abdomen and pelvis to level of mid thigh, obtained at one hour post radiopharmaceutical administration contemporaneously interpreted with the current CT of the neck, chest, abdomen and pelvis to level of mid thigh, dated 03/26/18 via coregistration reveal: FINDINGS: 1. Enhanced FDG concentration is defined in the right lower anteromedial lung field, right middle lobe demonstrating a calculated maximum standard uptake value of 4.5. The maximal axial diameter of the corresponding parenchyma density on review of CT of the chest dated 03/26/2018 is 30.6 mm. 2. Facilitated radiopharmaceutical uptake is demonstrated in the carinal and subcarinal mediastinum, right thoracic perihilum and aorticopulmonary window. The calculated maximum standard uptake value is 7.5. The largest corresponding soft tissue density demonstrates a maximal axial diameter of 24.4 millimeters. 3. There is mild increased glucose concentration observed in the right mid posterolateral hemithorax pulmonary parenchyma, right lower lobe, the left lower lateral hemithorax pulmonary parenchyma, left lower lobe generating a calculated maximal standard uptake value of 1.8. Quantitative criteria for viable neoplasm are not fulfilled. 4. Normal physiologic distribution of the radiopharmaceutical is apparent in the hepatic and splenic parenchyma, both renal units, bladder and visualized intestinal tract. The visualized portion of the cerebral cortex demonstrate symmetric and preserved glucose metabolism. Diffuse radiopharmaceutical concentration is noted in all four quadrants of the abdomen and pelvis. Pertinent CT findings are as follows: CHEST: There are no additional parenchymal densities-nodules demonstrating quantitatively significant enhanced glucose metabolism. There is atherosclerotic calcification defined in the thoracic aorta without evidence of dilatation-aneurysm formation. Coronary arterial calcification is observed. Subcentimeter bilateral axillary soft tissue densities are ametabolic. ABDOMEN AND PELVIS: There is atherosclerotic calcification defined in the abdominal aorta without evidence of dilatation-aneurysm formation. Pelvic arterial calcification is observed. Right-left subcentimeter inguinal soft tissue densities are non-glucose avid. Colonic diverticulosis is demonstrated. Calcifications are defined in the bilateral lower hemipelvis. SKELETAL: Degenerative changes are noted in the cervical, thoracic and lumbar spine. PET/PET/CT Tumor Base -Thigh Init IMPRESSION: 1. ABNORMAL EXAMINATION INDICATIVE OF MALIGNANT VIABLE NEOPLASM. 2. Increased glucose concentration noted in the right lower anterior hemithorax, right middle lobe, fulfills quantitative criteria for viable neoplasm. (Jayme et al, Annals of Internal Medicine, 138:724, 2003). 3. 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 (Josse bunch al, Journal of Clinical Oncology 16:2142, 1997). 4. Facilitated FDG uptake defined in the right mid posterolateral lung zone-right lower lobe and left lower lateral lung field, left lower lobe, do not fulfill quantitative criteria for viable neoplasm. Electronic Signature Ayush Whipple D.O. Electronically Signed: Ayush Whipple DO at 23:38 EDT Tel , Service support , CC: Edward Villa MD [employer] Equipment Operator: Signed COMPREHENSIVE METABOLIC Collected: 03/01/2018 Status: F Source: [facility] 8:53 AM [facility] REPOSITORY TYPE CODE TESTS RESULT OUT OF RANGE REFERENCE UNITS LAB L501.0100 74-106 mg/dL High GLU 112 Result Comment: Fasting Glucose result from 100 to 125 mg/dL suggests IMPAIRED HOMEOSTASIS per A.D.A. criteria. Please note revised GLUCOSE reference range effective 2017. LAB L501.1000 7-18 mg/dL High BUN 22 LAB L501.1100 0.70-1.30 mg/dL Normal CREAT,SERUM 0.97 Result Comment: The validity of the calculated GFR AND GFRAA in patients over 70 years has not been determined. Clinical correlation is essential. LAB L501.1110 >60 mL/min Normal EST GFR 84 Result Comment: Non- GFR Calc LAB L501.1115 >60 mL/min Normal EST GFR - AA 102 Result Comment: GFR Calc LAB L501.1300 10-20 RATIO High BUN/CRE 22.7 LAB L501.1500 6.4-8.2 g/dL T Normal PROT 7.5 LAB L501.1800 3.2-5.0 g/dL Normal ALB 4.0 LAB L501.1950 2.2-4.2 g/dL Normal GLOB 3.5 LAB L501.2000 0.9-2.4 RATIO Normal A/G 1.1 LAB L501.2200 8.5-10.1 mg/dL CA Normal 9.6 LAB L501.4100 15-37 U/L Normal AST 15 LAB L501.4305 45-117 U/L Normal ALK P 52 LAB L501.4405 16-61 U/L Normal ALT 29 LAB L501.4600 0.20-1.00 mg/dL T Normal BILI 0.20 LAB L501.5300 136-145 mmol/L NA Normal 144 LAB L501.5600 3.5-5.1 mmol/L K Normal 4.4 LAB L501.5900 98-107 mmol/L High CL 108 LAB L501.6100 21.0-32.0 mmol/L Normal CO2 29.0 LAB L501.6200 5-15 Normal GAP 7 Performed By: #### L500.4050, L500.4100 #### [facility] [address], [place], [id number] LIPID PROFILE Collected: 03/01/2018 Status: F Source: [facility] 8:53 AM [facility] REPOS[facility]ORY TYPE CODE TESTS RESULT OUT OF RANGE REFERENCE UNITS LAB L501.4900 200 mg/dL High CHOL 291 Result Comment: <200 mg/dL Desirable 200-240 mg/dL Borderline >240 mg/dL High Risk LAB L501.5000 mg/dL High TRIG 510 Result Comment: The drugs N-Acetylcysteine and Metamizole may falsely depress this assay. TRIGLYCERIDE IS GREATER THAN 400 mg/dL. LDL RESULT IS INVALID AND WILL NOT BE REPORTED. Serum Triglycerides Reference Interval Normal <150 mg/dL Borderline high 150 - 199 mg/dL High 200 - 499 mg/dL Very High > or = 500 mg/dL LAB L501.6400 mg/dL Low HDL 28 Result Comment: The drugs N-Acetylcysteine and Metamizole may falsely depress this assay. Reference Range HDL <40 mg/dL Low HDL Cholesterol HDL >or= 60 mg/dL High HDL Cholesterol LAB L501.6500 0-130 mg/dL Test Normal not performed LDL LAB L501.6600 5-40 mg/dL Test Normal not performed VLDL Performed By: #### L500.4050, L500.4100 #### [facility] [address], [place], [id number] HEMOGLOBIN A1C Collected: 03/01/2018 Status: F Source: [facility] 8:53 AM [facility] REPOSITORY TYPE CODE TESTS RESULT OUT OF RANGE REFERENCE UNITS LAB L501.9985 4.2-6.3 % Normal HGB A1C 5.4 Performed By: #### L501.9985 #### [facility] [address] [place], [address] CREATININE FINGERSTICK Collected: 02/07/2018 Status: F Source: [facility] 4:10 PM [facility] REPOSITORY TYPE CODE TESTS RESULT OUT OF RANGE REFERENCE UNITS LAB L9100.0210 0.70-1.30 mg/dL Normal CREATININE WB 0.8 LAB L9100.0220 >60 mL/min EGFR WB Normal > 60.0000 Performed By: #### L9100.0200 #### [facility] Point of Care [address] [place] [address] CHEST WITH CONTRAST Observed: 02/07/2018 Status: F Source: [facility] 3:59 PM [facility] REPOSITORY [facility] [address] [place] [address] Chest WITH Contrast MR#: [id number] Acct: [id number] Name: JOE NOLAND Rep #: [id number] : 1955 M 62 From: Min Mortensen MD PCP: Edward Villa MD Status: REG CLI Study: Chest WITH Contrast Date of Exam: 02/07/18 Exam# [id number] Ordering Dr: Edward Villa MD STUDY: CT CHEST WITH CONTRAST REASON FOR EXAM: Male, 62 years old. Unintended weight loss RADIATION DOSAGE (If Supplied By Facility): CTDIvol = ( 10.89 ) mGy, DLP = ( 580.05 ) mGycm TECHNIQUE: Transaxial imaging was performed following intravenous administration of 100 ml of Isovue 300 contrast material. Individualized dose optimization techniques were used for this CT. COMPARISON: 02/10/[address], 07/05/[address] FINDINGS: A suspicious spiculated nodule is present in the left lower lobe laterally measuring 11 x 9 mm on coronal image 102. Consider PET/CT versus CT guided biopsy. There is no demonstrated pleural abnormality. Normal heart and pericardium. Subcarinal adenopathy with short axis measurement of 15 mm. Normal hilar regions. Normal enhanced pulmonary arteries. Normal aorta arch and descending thoracic aorta. Normal osseous structures. Stable 8 mm enhancing focus in the right hepatic lobe. Multiple hepatic cysts. CT/Chest WITH Contrast IMPRESSION: Suspicious spiculated nodule in the left lower lobe. Consider PET/CT versus CT guided biopsy. Subcarinal adenopathy. Electronically Signed: Min Mortensen MD at 5:38 EDT Tel , Service support , CC: Edward Villa MD [employer] Operator: Signed ABDOMEN/PELVIS WITH Observed: 02/07/2018 Status: F Source: [facility] CONTRAST 3:56 PM [facility] REPOSITORY [facility] [address] [place] [address] Abdomen/Pelvis WITH Contrast MR#: [id number] Acct: [id number] Name: JOE NOLAND Rep #: [id number] : 1955 M 62 From: Obdulia Mosley MD PCP: Edward Villa MD Status: REG CLI Study: Abdomen/Pelvis WITH Contrast Date of Exam: 02/07/18 Exam# [id number] Ordering Dr: Edward Villa MD STUDY: CT ABDOMEN AND PELVIS WITH CONTRAST REASON FOR EXAM: Male, 62 years old. An intended weight loss. RADIATION DOSAGE (If Supplied By Facility): CTDIvol = ( 10.89 ) mGy, DLP = ( 580.05 ) mGycm TECHNIQUE: Transaxial images were obtained from the dome of the diaphragm to the symphysis pubis without oral contrast. 100 ml of Isovue 300 contrast was administered. Sagittal and coronal images were reconstructed. Individualized dose optimization techniques were used for this CT. COMPARISON: July 05, 2013 FINDINGS: There is minimal stable bibasilar atelectasis and/or scarring. The visualized portions of the heart are within normal limits. There are scattered stable subcentimeter low-attenuation foci within the liver which may reflect underlying hemangiomas and/or cysts. Normal gallbladder and extrahepatic biliary system. Normal spleen. Normal pancreas. Normal bilateral adrenal glands. There are too small to characterize low-attenuation foci arising from the kidneys that likely reflect underlying cysts. Normal visualized stomach. Normal small intestine. There are scattered colonic diverticula. There is non-visualization of the appendix. There is diffuse atherosclerotic calcification of the abdominal aorta, without a demonstrated aneurysm. Normal inferior vena cava. Normal retroperitoneum. Normal urinary bladder. There is enlargement of the prostate gland. Normal abdominal wall. There are diffuse degenerative changes of the visualized lumbar spine. CT/Abdomen/Pelvis WITH Contrast IMPRESSION: Atherosclerosis. Degenerative changes. Enlarged prostate gland. Colonic diverticulosis. Electronically Signed: Obdulia Mosley MD at 16:58 EDT Tel , Service support , CC: Edward Villa MD [employer] Operator: Signed SPINE LUMBAR Observed: 12/25/2017 Status: F Source: [facility] (ROUTINE) 4:17 PM [facility] REPOSITORY [facility] [address] [place] [address] Spine Lumbar (Routine) MR#: [id number] Acct: [id number] Name: JOE NOLAND Rep #: [id number] : 1955 M 62 From: Aydin Laird PCP: Edward Villa MD Status: REG CLI Study: Spine Lumbar (Routine) Date of Exam: 12/25/17 Exam# [id number] Ordering Dr: Mayra Stockton MD STUDY: MRI LUMBAR SPINE WITHOUT CONTRAST REASON FOR EXAM: Male, 62 years old. DDD,DISC DISPLACEMENT. Left foot numbness, stabbing back pain and lateral knee pain. PRior surgery 1997. TECHNIQUE: Standardized fat and water weighted pulse sequences were obtained in the sagittal and axial planes. COMPARISON: None FINDINGS: T12-L1: Normal endplates. Normal disc height, hydration and morphology. Normal bilateral facet joints. Normal central canal and bilateral lateral recesses. Normal bilateral intervertebral neural foramina. There is straightening of the normal lumbar lordosis. There is no substantial scoliosis. Normal conus medullaris that terminates at the L1/L2 L1-2: There is mild disc space narrowing and endplate spondylosis. There is a minimal disc bulge without significant central canal or foraminal stenosis. L2-3: There is mild disc space narrowing and endplate spondylosis. There is a minimal disc bulge without significant central canal or foraminal stenosis. L3-4: There is mild disc space narrowing and endplate spondylosis. There is a moderate disc bulge with left paracentral extrusion resulting in severe left lateral recess narrowing. There is bilateral facet hypertrophy with mild central canal stenosis. There is mild bilateral foraminal stenosis. L4-5: There is moderate disc space narrowing and endplate spondylosis. There is a moderate disc bulge with small central extrusion and facet arthropathy with mild central canal stenosis. There is mild bilateral foraminal stenosis. L5-S1: There is moderate disc space narrowing and endplate spondylosis. There is minimal retrolisthesis and disc bulging without significant central stenosis. There is mild bilateral foraminal stenosis. Normal visualized sacral ala. Normal visualized paraspinous soft tissue structures. MRI/Spine Lumbar (Routine) IMPRESSION: L3/L4: Disc extrusion with severe left lateral disc narrowing. L4/L5: Small extrusion with mild central canal stenosis. Electronically Signed: Aydin Laird MD at 10:51 EDT Tel , Service support , CC: Mayra Stockton MD; Edward Villa MD [employer] Operator: Signed CBC W/DIFF, AUTOMATED Collected: 11/24/2017 Status: F Source: [facility] 9:00 AM [facility]POSIT[facility] TYPE CODE TESTS RESULT OUT OF RANGE REFERENCE UNITS LAB L100.1000 4.4-11.0 K/mm3 Normal WBC 6.5 LAB L100.1200 4.6-6.2 M/mm3 Normal RBC 4.83 LAB L100.1300 13.0-16.5 g/dl Normal HGB 15.0 LAB L100.1400 40-54 % Normal HCT 45.7 LAB L100.1500 80-94 fL High MCV 94.6 LAB L100.1600 27.0-32.0 pg Normal MCH 31.1 LAB L100.1700 32-36 g/gl Normal MCHC 32.8 LAB L100.1810 11.6-14.6 % Normal RDW CV 14.1 LAB L100.1820 35.1-43.9 fl High RDW SD 47.6 LAB L100.1900 150-450 K/mm3 Normal PLT 265 LAB L100.2000 6.2-12.0 fl Normal MPV 10.0 LAB L100.2100 47-70 % Normal NEUT% 65.6 LAB L100.2200 19-41 % Normal LY% 22.8 LAB L100.2300 0-10 % Normal MONO% 8.5 LAB L100.2400 0-5 % Normal EO% 1.1 LAB L100.2500 0-1 % Normal BASO% 0.6 LAB L100.2550 0.0-0.9 % High IM GRAN % 1.400 Result Comment: IG% - Immature Granulocytes (promyelocytes, myelocytes and metamyelocytes) > 1% indicates that a LEFT SHIFT is Present. LAB L100.2620 2.0-7.7 X10 3/uL Normal Absolute Neut 4.2 LAB L100.2720 0.83-4.51 X10 3/ul Normal Absolute Lymph 1.47 Performed By: #### L100.0100 #### [facility] [address] [place], [place], [id number] HEMOGLOBIN A1C Collected: 11/24/2017 Status: F Source: [facility] 9:00 AM [facility]POSIT[facility] TYPE CODE TESTS RESULT OUT OF RANGE REFERENCE UNITS LAB L501.9985 4.2-6.3 % Normal HGB A1C 5.9 Performed By: #### L501.9985 #### [facility] [address], [address] COMPREHENSIVE METABOLIC Collected: 11/24/2017 Status: F Source: [facility] 9:00 AM [facility]POSIT[facility] TYPE CODE TESTS RESULT OUT OF RANGE REFERENCE UNITS LAB L501.0100 74-106 mg/dL Normal GLU 87 Result Comment: Please note revised GLUCOSE reference range effective 2017. LAB L501.1000 7-18 mg/dL High BUN 22 LAB L501.1100 0.70-1.30 mg/dL Normal CREAT,SERUM 1.22 Result Comment: The validity of the calculated GFR AND GFRAA in patients over 70 years has not been determined. Clinical correlation is essential. LAB L501.1110 >60 mL/min Normal EST GFR 64 Result Comment: Non- GFR Calc LAB L501.1115 >60 mL/min Normal EST GFR - AA 78 Result Comment: GFR Calc LAB L501.1300 10-20 RATIO Normal BUN/CRE 18.0 LAB L501.1500 6.4-8.2 g/dL High T PROT 8.5 LAB L501.1800 3.2-5.0 g/dL Normal ALB 4.5 LAB L501.1950 2.2-4.2 g/dL Normal GLOB 4.0 LAB L501.2000 0.9-2.4 RATIO Normal A/G 1.1 LAB L501.2200 8.5-10.1 mg/dL High CA 10.2 LAB L501.4100 15-37 U/L Normal AST 35 Result Comment: Slight Hemolysis, Result may be falsely increased. LAB L501.4305 45-117 U/L Normal ALK P 48 LAB L501.4405 16-61 U/L High ALT 77 LAB L501.4600 0.20-1.00 mg/dL Normal T BILI 0.40 LAB L501.5300 136-145 mmol/L Normal NA 139 LAB L501.5600 3.5-5.1 mmol/L Normal K 4.6 Result Comment: Slight Hemolysis, Result may be falsely increased. LAB L501.5900 98-107 mmol/L Normal CL 106 LAB L501.6100 21.0-32.0 mmol/L Normal CO2 26.0 LAB L501.6200 5-15 Normal 7 GAP Performed By: #### L500.4050, L501.9520 #### [facility] [address] [place], [place], [address] THYROID STIM HORMONE Collected: 11/24/2017 Status: F Source: [facility] ([facility]) 9:00 AM [facility] REPOSITORY TYPE CODE TESTS RESULT OUT OF RANGE REFERENCE UNITS LAB L501.9520 0.358-3.74 uIU/mL Normal TSH 1.19 Performed By: #### L500.4050, L501.9520 #### [facility] [address] [facility] [place], [address] CBC W/DIFF, AUTOMATED Collected: 09/20/2017 Status: C Source: [facility] 8:53 AM [facility] REPOSITORY TYPE CODE TESTS RESULT OUT OF RANGE REFERENCE UNITS LAB L100.1000 4.4-11.0 K/mm3 Normal WBC 6.2 LAB L100.1200 4.6-6.2 M/mm3 Normal RBC 4.83 LAB L100.1300 13.0-16.5 g/dl Normal HGB 15.4 LAB L100.1400 40-54 % Normal HCT 45.6 LAB L100.1500 80-94 fL High MCV 94.4 LAB L100.1600 27.0-32.0 pg Normal MCH 31.9 LAB L100.1700 32-36 g/gl Normal MCHC 33.8 LAB L100.1810 11.6-14.6 % Normal RDW CV 14.2 LAB L100.1820 35.1-43.9 fl High RDW SD 47.2 LAB L100.1900 150-450 K/mm3 Normal PLT 234 LAB L100.2000 6.2-12.0 fl Normal MPV 10.5 LAB L100.2100 47-70 % High NEUT% 70.2 LAB L100.2200 19-41 % Low LY% 18.0 LAB L100.2300 0-10 % Normal MONO% 8.0 LAB L100.2400 0-5 % Normal EO% 0.8 LAB L100.2500 0-1 % Normal BASO% 0.6 LAB L100.2550 0.0-0.9 % High IM GRAN % 2.400 Result Comment: IG% - Immature Granulocytes (promyelocytes, myelocytes and metamyelocytes) > 1% indicates that a LEFT SHIFT is Present. LAB L100.2620 2.0-7.7 X10 3/uL Normal Absolute Neut 4.4 LAB L100.2720 0.83-4.51 X10 3/ul Normal Absolute Lymph 1.12 LAB L100.9900 Normal PATH REV Reviewed Result Comment: Neutrophilic left shift. Clinical correlation necessary. Alex Paredes M.D. 09/21/17 AMENDED REPORT 09/21/17 1201 PATH REV previously reported as: October Performed By: #### L100.0100 #### [facility] [address] [place], [address] INSULIN Collected: 09/20/2017 Status: F Source: [facility] 8:53 AM [facility] REPOSIT[facility] TYPE CODE TESTS RESULT OUT OF RANGE REFERENCE UNITS LAB [id number] 2.6-37.6 mU/L Normal Insulin 31.7 Result Comment: Please Note: INSULIN METHOD AND REFERENCE RANGE CHANGE Effective 06/15/2017. Performed By: #### [id number], L506.1000 #### [facility] [address] [place], [place], [address] VITAMIN D,25 HYDROXY Collected: 09/20/2017 Status: F Source: [facility] 8:53 AM [facility] REPOSIT[facility] TYPE CODE TESTS RESULT OUT OF REFERENCE UNITS RANGE LAB L506.1000 29.95-100.01 ng/mL Low Vitamin D 17.9 25-OH Result Comment: Vitamin D 25(OH) Status Range Deficiency <20 ng/mL (50nmol/L) Insuffciency 20 - 30 ng/mL (50 - 75 nmol/L) Sufficiency 30 - 100 ng/mL (75 - 250 nmol/L) Toxicity >100 ng/mL (>250 nmol/L) Performed By: #### [id number], L506.1000 #### [facility] [address] [place], [place], [address] HEMOGLOBIN A1C Collected: 09/20/2017 Status: F Source: [facility] 8:53 AM [facility] REPOSITORY TYPE CODE TESTS RESULT OUT OF RANGE REFERENCE UNITS LAB L501.9985 4.2-6.3 % Normal HGB A1C 5.9 Performed By: #### L501.9985 #### [facility] [place], [address] COMPREHENSIVE METABOLIC Collected: 09/20/2017 Status: F Source: [facility] 8:53 AM [facility] REPOSITORY TYPE CODE TESTS RESULT OUT OF RANGE REFERENCE UNITS LAB L501.0100 74-106 mg/dL High GLU 112 Result Comment: Fasting Glucose result from 100 to 125 mg/dL suggests IMPAIRED HOMEOSTASIS per A.D.A. criteria. Please note revised GLUCOSE reference range effective 2017. LAB L501.1000 7-18 mg/dL High BUN 21 LAB L501.1100 0.70-1.30 mg/dL Normal CREAT,SERUM 1.27 Result Comment: The validity of the calculated GFR AND GFRAA in patients over 70 years has not been determined. Clinical correlation is essential. LAB L501.1110 >60 mL/min Normal EST GFR 62 Result Comment: Non- GFR Calc LAB L501.1115 >60 mL/min Normal EST GFR - AA 74 Result Comment: GFR Calc LAB L501.1300 10-20 RATIO Normal BUN/CRE 16.5 LAB L501.1500 6.4-8.2 g/dL T Normal PROT 7.9 LAB L501.1800 3.2-5.0 g/dL Normal ALB 4.4 LAB L501.1950 2.2-4.2 g/dL Normal GLOB 3.5 LAB L501.2000 0.9-2.4 RATIO Normal A/G 1.3 LAB L501.2200 8.5-10.1 mg/dL CA Normal 9.1 LAB L501.4100 15-37 U/L Normal AST 29 Result Comment: Slight Hemolysis, Result may be falsely increased. LAB L501.4305 45-117 U/L Normal ALK P 55 LAB L501.4405 16-61 U/L Normal ALT 58 LAB L501.4600 0.20-1.00 mg/dL Normal T BILI 0.50 LAB L501.5300 136-145 mmol/L Normal NA 138 LAB L501.5600 3.5-5.1 mmol/L Normal K 4.3 Result Comment: Slight Hemolysis, Result may be falsely increased. LAB L501.5900 98-107 mmol/L High CL 108 LAB L501.6100 21.0-32.0 mmol/L Normal CO2 23.0 LAB L501.6200 5-15 Normal 7 GAP Performed By: #### L500.4050, L501.42999, L501.9520, L506.0400 #### [facility] [address] [place], [address] FREE T3 Collected: 09/20/2017 Status: F Source: [facility] 8:53 AM [facility] REPOSITORY TYPE CODE TESTS RESULT OUT OF RANGE REFERENCE UNITS LAB L501.96821 2.18-3.98 pg/mL Normal FREE T3 3.4 Performed By: #### L500.4050, L501.11397, L501.9520, L506.0400 #### [facility] [address] [place], [place], [address] THYROID STIM HORMONE Collected: 09/20/2017 Status: F Source: [facility] ([facility]) 8:53 AM [facility] REPOSITORY TYPE CODE TESTS RESULT OUT OF RANGE REFERENCE UNITS LAB L501.9520 0.358-3.74 uIU/mL Normal TSH 0.72 Performed By: #### L500.4050, L501.80152, L501.9520, L506.0400 #### [facility] [address] [place], [address] T4 FREE DIRECT Collected: 09/20/2017 Status: F Source: [facility] 8:53 AM [facility] REPOSITORY TYPE CODE TESTS RESULT OUT OF RANGE REFERENCE UNITS LAB L506.0400 0.76-1.46 ng/dL Normal T4 FREE 1.01 DIRECT Performed By: #### L500.4050, L501.58451, L501.9520, L506.0400 #### [facility] [address] [place], [address] LIPOPROTEIN A Collected: 09/20/2017 Status: F Source: [facility] 8:53 AM [facility] REPOSIT[facility] TYPE CODE TESTS RESULT OUT OF RANGE REFERENCE UNITS LAB L3400.4600 <75 nmol/L Lipoprotein Normal A <10 Result Comment: Note: Values greater than or equal to 75 nmol/L may indicate an independent risk factor for CHD, but must be evaluated with caution when applied to non- populations due to the influence of genetic factors on Lp(a) across ethnicities. Performed at: - [facility] [id number] Entry Level Civil Engineer: Jose Lamb PhD, Phone: [phone] Performed By: #### L3400.4600 #### [facility] (refer to report for specific site) refer to report for address and phone number NMR LIPOPROFILE Collected: 09/20/2017 Status: F Source: [facility] 8:53 AM [facility]POS[facility] TYPE CODE TESTS RESULT OUT OF REFERENCE UNITS RANGE LAB L3500.0250 LIPIDS Normal . LAB L3500.0300 100-199 mg/dL CHOLESTEROL High TOT 271 LAB L3500.0350 0-99 mg/dL LDL-C Normal Comment Result Comment: Triglyceride result indicated is too high for an accurate LDL cholesterol estimation. Optimal < 100 Above optimal 100 - 129 Borderline 130 - 159 High 160 - 189 Very high > 189 LDL-C is inaccurate if patient is non-fasting. LAB L3500.0400 >39 mg/dL HDL-C Low 24 LAB L3500.0450 0-149 mg/dL TRIGLYCERIDES High 877 LAB L3500.0560 <1000 nmol/L LDL-P High 2361 Result Comment: Low < 1000 Moderate 1000 - 1299 Borderline-High 1300 - 1599 High 1600 - 2000 Very High > 2000 LAB L3500.0575 Normal LD HD PARTICLES . LAB L3500.0580 >=30.5 umol/L Normal HDL-P TOTAL 39.0 LAB L3500.0585 <=527 nmol/L High SMALL LDL-P 1839 LAB L3500.0590 >20.5 nm Normal LDL SIZE 19.8 Result Comment: INTERPRETATIVE INFORMATION PARTICLE CONCENTRATION AND SIZE <--Lower CVD Risk Higher CVD Risk--> LDL AND HDL PARTICLES Percentile in Reference Population HDL-P (total) High 75th 50th 25th Low >34.9 34.9 30.5 26.7 <26.7 Small LDL-P Low 25th 50th 75th High <117 [phone] >839 LDL Size <-Large (Pattern A)-> <-Small (Pattern B)-> 23.0 20.6 20.5 19.0 Small LDL-P and LDL Size are associated with CVD risk, but not after LDL-P is taken into account. These assays were developed and their performance characteristics determined by [employer]. These assays have not been cleared by the [place] Food and Drug Administration. The clinical utility of these laboratory values have not been fully established. LAB L3500.0595 Normal INS RES/DIAB RK . LAB L3500.0875 <=45 High LP-IR SCORE 81 Result Comment: INSULIN RESISTANCE MARKER <--Insulin Sensitive Insulin Resistant--> Percentile in Reference Population Insulin Resistance Score LP-IR Score Low 25th 50th 75th High <27 27 45 63 >63 LP-IR Score is inaccurate if patient is non-fasting. The LP-IR score is a laboratory developed index that has been associated with insulin resistance and diabetes risk and should be used as one component of a physician's clinical assessment. The LP-IR score listed above has not been cleared by the [place] Food and Drug Administration. Performed By: #### L3500.0000 #### [facility] (refer to report for specific site) refer to report for address and phone number ALLERGIES ALLERGIES DATE TYPE / CODE NAME / CODE REACTION SEVERITY SOURCE 05/01/2018 Drug duloxetine/F0 ANXIETY Unknown [place] [facility] All[facility]/4160 [id number]([facility] [place] [address](SNOMED ) Repository CT) 04/24/2018 Drug No Known Unknown [facility] Allergy/4160 Allergies/F00 [place] [id number](SNOMED [id number](RXNOR Repository CT) M) ENCOUNTERS ENCOUNTERS ADMIT/DISCHARGE ACCOUNT ADMITTING ENCOUNTER LOCATION SOURCE NUMBER CLASS 05/21/2018 [id number] Ambulatory [place] 7 [facility] Hospital ing:BFHLAB Repository 05/01/2018 [id number] Ambulatory Jes [place] [address] [facility] ing:HPRAD Repository 05/01/2018/ [id number] Ambulatory BMSBuilding:B [place] 8 3 [facility] Repository 04/24/2018/ [id number] Emergency Jes [place] [address] [facility] ing:ED Repository 04/06/2018 [id number] Ambulatory [place] [address] [facility] ing:BFHLAB Repository 03/26/2018 [id number] Ambulatory [place] [address] [facility] ing:ONC Repository 03/01/2018 [id number] Ambulatory Jes [place] 5 [facility] Hospital ing:BFHLAB Repository 02/07/2018 [id number] Ambulatory Jes [place] 0 [facility] Hospital ing:CT Repository 01/26/2018 [id number] Ambulatory [place] 1 [facility] Hospital ing:RAD.FUTUR Repository E 12/25/2017 [id number] Ambulatory Jes [place] 7 [facility] Hospital ing:MRI Repository 11/24/2017 [id number] Ambulatory Jes [place] 5 [facility] Hospital ing:LAB.FUTUR Repository E 09/20/2017 [id number] Ambulatory Jes [place] 2 [facility] Hospital ing:BFHLAB Repository PAYERS PAYERS ENCOUNTER GUARANTOR PAYER SUBSCRIBER SOURCE 05/21/2018 JOE NOLAND511 Primary JOE SALINAS Insurance:MISAEL MORRISONOB: [place] PPOPolicy [id number] Hospital [address]Kay: [phone] Number: Repository [phone] ) [id number] Date:[id number] [address]PT: 05/21/2018 Secondary NOT GIVENUNK [place] Insurance:SELF PAY [facility] Number: Effective Repository Date:2018-05-21 05/01/2018 JOE NOLAND511 Primary JOE SALINAS [facility] BOW[facility]: [facility] [id number] Hospital [address]Igg: [phone] Number: Repository [phone] () [id number] Date: [facility] [address] [place], [place] [address]CT: 05/01/2018 Secondary NOT GIVENUNK [place] Insurance:SELF PAY [facility] Number: Effective Repository Date:2018-05-01 05/01/2018 JOE Freeman [id number] Primary OJE H [place] RITA Insurance:HUMANA BOWENDOB: [place] MEDICARE [facility] [id number] [id number]: [phone]) Number: Repository [phone] () [id number] Date:9928-27-67GR [address] [place] [address]ZG: 05/01/2018 Secondary NOT GIVENUNK Jes Insurance:SELF PAY [facility] Number: Effective Repository Date:2018-04-24 04/24/2018 JOE Freeman [id number] Primary JOE GEORGEERSON Insurance:[facility] BOW[facility]: [facility] [id number] [id number]: [phone] Number: Repository [phone] () [id number] Date: [facility] [address], [place] [address]BZ: 04/24/2018 Secondary JOE H Jes Insurance:HUMANA BOWENDOB: [facility] MEDICARE [facility] [id number] Hospital Number: Repository [id number] Date:4825-82-91SW [address] [place] [address]EP: 04/24/2018 Tertiary NOT GIVENUNK [place] Insurance:SELF PAY [facility] Number: Effective Repository Date:2018-04-24 04/06/2018 JOE Freeman [id number] Primary JOE Andre RITA Insurance:HUMANA BOWENDOB: [place] OPolicy [id number] Hospital [address]Oao: [phone] Number: Repository [phone] () [id number] Date:5567-18-56HL [address] [place] [address]WP: 04/06/2018 Secondary NOT GIVENUNK [place] Insurance:SELF PAY [facility] Number: Effective Repository Date:2018-04-06 03/26/2018 JOE Freeman [id number] Primary JOE Andre RITA Insurance:HUMANA BOWENDOB: [place] MEDICARE OPolicy [id number] Hospital [address]Zgy: [phone] Number: Repository [phone] () [id number] Date:0022-74-34GU [place] [id number]: 03/26/2018 Secondary NOT GIVENUNK Jes Insurance:SELF PAY [facility] Number: Effective Repository Date:2018-03-22 03/01/2018 JOE Freeman [id number] Primary JOE Andre RITA Insurance:HUMANA BOWENDOB: [place] MED[place]ARE OPolicy [id number] Hospital [address]Xbm: (330) Number: Repository [phone] () [id number] Date:3821-20-17SX [address] [address]FX: 03/01/2018 Secondary NOT GIVENUNK Jes Insurance:SELF PAY [facility] Number: Effective Repository Date:2018-03-01 02/07/2018 JOE Freeman [id number] Primary JOE Andre RITA Insurance:HUMANA BOWENDOB: [place] [id number] Hospital [address]Avj: [phone]) Number: Repository [phone] () [id number] Date:1338-54-09TU [address] [place] [address]UB: 02/07/2018 Secondary NOT GIVENUNK [place] Insurance:SELF PAY [facility] Number: Effective Repository Date:2018-01-25 01/26/2018 JOE NOLAND511 Primary JOE SALINAS Insurance:HUMANA BOWENDOB: [place] PPOPolicy [id number] Hospital [address]Qsi: [phone]) Number: Repository [phone] () [id number] Date:2406-49-53OR [address] [address]BM: 01/26/2018 Secondary NOT GIVENUNK Jes Insurance:SELF PAY [facility] Number: Effective Repository Date:2018-01-26 12/25/2017 JOE Freeman [id number] Primary JOE SALINAS [facility] BOWENDOB: [place] MGMT [facility] [id number] Hospital [address]Fyz: [phone] Number: Repository [phone] () [id number] Date: [address] [address]DZ: 12/25/2017 Secondary NOT GIVENUNK [place] Insurance:SELF PAY [facility] Number: Effective Repository Date:2017-12-22 11/24/2017 Joe Landon1 Primary Joe Salinas Insurance:HUMANA BowenDOB: [place] PPOPolicy [id number] Hospital [address]Qgs: [phone]) Number: Repository [phone] () [id number] Date:6942-58-42FA [address] [address]KJ: 11/24/2017 Secondary NOT GIVENUNK [place] Insurance:SELF PAY [facility] Number: Effective Repository Date:2017-11-24 09/20/2017 Joe Landon1 Primary Joe [place] Insurance:HUMANA BowenDOB: [place] PPOPolicy [id number] Hospital [address]Gxf: [phone]) Number: Repository [phone] () [id number] Date:2055-89-63ZS [address] [place] [address]VY: 09/20/2017 Secondary NOT GIVENUNK [place] Insurance:[facility]LF [facility] Effective Repository Date:2017-09-20
== END ==
PROVIDERS: Family Provider Family Medicine; PCP Family Medicine; Referring Provider Orthopaedic Surgery; Visit Provider Orthopaedic Surgery
DX: M54.5 Low back pain (principal)
CPT/HCPCS: 72110

== ENCOUNTER → 2018-05-21 08:46 | Outpatient (CLI) | payer MEDICARE, SELFPAY ==
[2018-05-21 12:12] LABS: Absolute Lymphocyte Count 1.72 X10^3/ul (0.83-4.51); Absolute Neutrophil Count 3.7 X10^3/uL (2.0-7.7); Basophil# 0.02 X10^3/uL; Basophil% 0.3 % (0-1); Eosinophil# 0.08 X10^3/uL; Eosinophils% 1.3 % (0-5); Hemoglobin 14.2 g/dl (13.0-16.5); Lymphocyte # 1.72 X10^3/ul (4.0); Lymphocyte % 28.1 % (19-41); Mean Corp Hgb Conc 32.3 g/gl (32-36); Mean Corpuscular Hgb 31.6 pg (27.0-32.0); Mean Corpuscular Volume 97.8 fL (80-94); Mean Platelet Vol. 9.9 fl (6.2-12.0); Monocyte# 0.41 X10^3/uL; Monocyte% 6.7 % (0-10); Neutrophil # 3.74 X10^3/uL (2.7-7.7); Platelet Count 199 K/mm3 (150-450); RBC Distribution Width SD 50.1 fl (35.1-43.9); White Blood Count 6.1 K/mm3 (4.4-11.0)
[2018-05-21 12:18] LABS: POSITIVE COUNT YES; POSITIVE DIFFERENTIAL NO; POSITIVE MORPHOLOGY YES
[2018-05-21 12:39] LABS: ALB/GLOB Ratio 1.1 RATIO (0.9-2.4); AST(SGOT) 17 U/L (15-37); Alanine Aminotransfer ALT/SGPT 29 U/L (16-61); Albumin, Serum 3.8 g/dL (3.2-5.0); Alkaline Phosphatase 48 U/L (45-117); Anion Gap 9 (5-15); BUN 20 mg/dL (7-18); BUN/Creat Ratio 18.3 RATIO (10-20); Calcium,Total 9.5 mg/dL (8.5-10.1); Chloride 108 mmol/L (98-107); Cholesterol 298 mg/dL (200); Creatinine, Serum 1.09 mg/dL (0.70-1.30); EST Glomerular Filtration Rate 73 mL/min (>60); Est Glom Filt Rate - Afr Amer 89 mL/min (>60); Globulin 3.6 g/dL (2.2-4.2); Glucose 95 mg/dL (74-106); High Density Lipoprotein 27 mg/dL; Potassium 4.2 mmol/L (3.5-5.1); Protein, Total 7.4 g/dL (6.4-8.2); Sodium Level 146 mmol/L (136-145); Triglycerides 576 mg/dL
[2018-05-21 12:43] LABS: Hemoglobin A1c 5.5 % (4.2-6.3)
[2018-05-22 14:44] LABS: Pathologist Review Reviewed
--- OUTSIDE RECORDS SUMMARY | 2018-08-22 19:56 | XMS RPT_ITS ---
:1955 Author Organization OHIP Support Name Relationship Address Phone LUDIN JOSIE Unavailable [address] + [place] [address] D Unavailable Unavailable Unavailable JOSIE NOLAND Unavailable [address] + [place] [address] D Unavailable Unavailable Unavailable JOSIE NOLAND Unavailable [address] + [place] [address] D Unavailable Unavailable Unavailable JOSIE NOLAND Unavailable [address] + [place] [address] D Unavailable Unavailable Unavailable JOSIE NOLAND Unavailable [address] + [place] [address] D Unavailable Unavailable Unavailable JOSEI NOLAND Unavailable [address] + [place] [address] D Unavailable Unavailable Unavailable JOSIE NOLAND Unavailable [address] + [place] [address] D Unavailable Unavailable Unavailable ALEXI NOLANDIE Unavailable [address] + [place] [address] D Unavailable Unavailable Unavailable JOSIE NOLAND Unavailable [address] + [place] [address] D Unavailable Unavailable Unavailable ALEXI NOLANDIE Unavailable [address] + [place] [address] D Unavailable Unavailable Unavailable JOSIE NOLAND Unavailable [address] + [place] [address] D Unavailable Unavailable Unavailable ALEXI NOLANDIE Unavailable [address] + [place] [address] D Unavailable Unavailable Unavailable ALEXI NOLANDIE Unavailable [address] + [place] [address] D Unavailable Unavailable Unavailable JOSIE NOLAND Unavailable [address] + [place] [address] D Unavailable Unavailable Unavailable Care Team Providers Name Role Phone Chanelle Jay Attending Unavailable Allen, Edward Primary Care Unavailable Randa Javier Attending Unavailable Concepcion Randa Referring Unavailable Allen, Edward Primary Care Unavailable Misty, Chanelle Rosie Attending Unavailable Allen, Edward Primary Care Unavailable Justine Jaya Rosie Attending Unavailable Allen, Edward Primary Care Unavailable Mayra Stockton Attending Unavailable BasalMayra tatum Referring Unavailable Allen, Edward Primary Care Unavailable Marcin Falk Attending Unavailable Marcin Falk Referring Unavailable Allen, Edward Primary Care Unavailable Allen, Edward Attending Unavailable Allen, Edward Primary Care Unavailable Allen, Edward Attending Unavailable Allen, Edward Referring Unavailable Allen, Edward Primary Care Unavailable Misty, Chanelle NSean Attending Unavailable Allen, Edward Primary Care Unavailable Allen, Edward Attending Unavailable Allen, Edward Primary Care Unavailable Kush Rondon Attending Unavailable Allen, Edward Primary Care Unavailable Allen, Edward Primary Care Unavailable Martin Wright Attending Unavailable Shana Javierbeth Attending Unavailable Allen, Edward Referring Unavailable Shana Javierbeth Attending Unavailable Javier, Randa Referring Unavailable Allen, Edward Primary Care Unavailable PROBLEMS PROBLEMS DATE TYPE CONDITION / CODE ATTENDING STATUS SOURCE 05/01/2018 Unknown M54.5 - Low back pain Randa Javier Active [place] / M54.5(ICD-10) [facility] [place] 04/16/2018 Unknown R91.1 - Solitary Sibilia, Active [place] pulmonary nodule / [facility] R91.1(ICD-10) Hospital Repository 11/24/2017 Unknown R73.03 - Prediabetes / Raghunathan, Active [place] R73.03(ICD-10) [facility] Repository 09/20/2017 Unknown E78.1 - Pure Raghunathan, Active [place] hyperglyceridemia / Chanelle [facility] E78.1(ICD-10) Hospital Repository PROCEDURES PROCEDURES No Procedure Records FoundRESULTS RESULTS SINUS/FACIAL BONE Observed: 06/21/2018 Status: F Source: [place] 2:26 PM [facility] REPOSITORY [facility] Imaging Services [address] [place] [address] Sinus/Facial Bone MR#: [id number] Acct: [id number] Name: JOE NOLAND Rep #: [id number] : 1955 M 62 From: Sabas Nicole MD PCP: Edward Villa MD Status: REG CLI Study: Sinus/Facial Bone Date of Exam: 06/21/18 Exam# [id number] Ordering Dr: Marcin Falk MD STUDY: CT MAXILLOFACIAL SINUSES REASON FOR EXAM: Male, 62 years old. Palpable lump right anterior aspect of RADIATION DOSAGE (If Supplied By Facility): CTDIvol = ( 29.38 ) mGy, DLP = ( 503.38 ) mGycm TECHNIQUE: The patient was scanned in a multi detector CT scanner. High resolution axial imaging was performed without the administration of intravenous contrast material. Sagittal and coronal images were reconstructed. Individualized dose optimization techniques were used for this CT. COMPARISON: None. FINDINGS: : There is a 2.4 x 1.9 cm soft tissue mass originating from the inferior aspect of the right buccinator muscle and eroding into the anterior aspect of the right maxillary ridge. The lesion forms part of the anterior floor of the right maxillary sinus. There are no inflammatory changes within the right maxillary sinus or any of the paranasal sinuses. The nasal septum is midline. The cribriform plate and sudhir mitzi are intact. The lamina papyracea, the turbinates and both ostiomeatal units are normal. . CT/Sinus/Facial Bone IMPRESSION: A benign looking 2.4 x 1.5 cm soft tissue mass originating from the inferior aspect of the right buccinator space/muscle and is eroding into the anterior aspect of the right maxillary ridge. The mass forms part of the anterior floor of the right maxillary sinus. There is however no evidence of any right maxillary sinusitis. The rest of the paranasal sinuses are normal. Further evaluation with an MRI or tissue biopsy is suggested Electronically Signed: Sabas Nicole MD at 6:28 EST Tel , Service support , CC: Marcin Falk MD; Edward Villa MD Assistant Secretary: Signed SPINE LUMBAR W/WO Observed: 05/30/2018 Status: F Source: [place] CONTRAST 4:58 PM [facility] REPOSITORY [facility] Imaging Services [address] [address] Spine Lumbar W/WO Contrast MR#: [id number] Acct: [id number] Name: JOE NOLAND Rep #: [id number] : 1955 M 62 From: Min Mortensen MD PCP: Edward Villa MD Status: REG CLI Study: Spine Lumbar W/WO Contrast Date of Exam: 05/30/18 Exam# [id number] Ordering Dr: Randa Javier MD STUDY: MRI LUMBAR SPINE WITH AND WITHOUT CONTRAST REASON FOR EXAM: Male, 62 years old. Low back pain and sharp pains in left leg TECHNIQUE: Standardized fat and water weighted pulse sequences were obtained in the sagittal and axial planes. 7 ml of Gadavist contrast material was administered for the contrast portion of the examination. COMPARISON: 12/25/2017 FINDINGS: T12-L1: Normal endplates. Normal disc height, hydration and morphology. Normal bilateral facet joints. Normal central canal and bilateral lateral recesses. Normal bilateral intervertebral neural foramina. Normal lumbar lordosis. There is no substantial scoliosis. Normal conus medullaris that terminates at the L1 level. L1-2: Bulging annulus with mild bilateral foraminal stenoses. L2-3: Bulging annulus with moderate right foraminal stenosis. L3-4: Left subarticular disc protrusion with impingement of the transiting left L4 nerve root. Bulging annulus with mild bilateral foraminal stenoses. L4-5: Bulging annulus and central disc protrusion with moderate central canal stenosis and mild bilateral foraminal stenoses. Right laminotomy. L5-S1: Bulging annulus and broad central disc protrusion with mild bilateral foraminal stenoses. Normal visualized sacral ala. Normal visualized paraspinous soft tissue structures. MRI/Spine Lumbar W/WO Contrast IMPRESSION: Stable multilevel degenerative disc disease. Disc protrusion at L3-4 with mass effect on the transiting left L4 nerve root. Electronically Signed: Min Mortensen MD at 7:13 EST Tel , Service support , CC: Randa Javier MD; Edward Villa MD Assistant Secretary: Signed CBC W/DIFF, AUTOMATED Collected: 05/21/2018 Status: C Source: [place] 8:47 AM [facility] REPOSITORY TYPE CODE TESTS RESULT OUT OF [...] 05/22/18 1444 PATH REV previously reported as: October marcus Performed By: #### L100.0100 #### [facility] [address] [place], [address] COMPREHENSIVE METABOLIC Collected: 05/21/2018 Status: F Source: [facility] 8:47 AM [facility] REPOSITORY TYPE CODE TESTS RESULT OUT OF [...] 9 Performed By: #### L500.4050, L500.4100 #### [facility] [address] [place], [place], [id number] LIPID PROFILE Collected: 05/21/2018 Status: F Source: [place] 8:47 AM [facility] REPOSITORY TYPE CODE TESTS RESULT OUT OF [...] VLDL Performed By: #### L500.4050, L500.4100 #### [facility] [address] [facility]. [place], [place], [address] HEMOGLOBIN A1C Collected: 05/21/2018 Status: F Source: [place] 8:47 AM [facility] REPOSITORY TYPE CODE TESTS RESULT OUT OF RANGE REFERENCE UNITS LAB L501.9985 4.2-6.3 % Normal HGB A1C 5.5 Performed By: #### L501.9985 #### [facility] [address] [place], [place], [address] ORTHOPEDIC VISIT Observed: 05/12/2018 Status: F Source: [place] REPORT 11:51 AM [facility] REPOSITORY [facility] [address] [place] [address] OFFICE VISIT Date of Service: 05/01/18 MR#: [id number] Acct: [id number] Name: JOE NOLAND Rep #: [id number] : 1955 Provider: Randa Javier MD Age/Sex: 62/M [place] [facility] [place] Status: Signed Intake Vital Signs05/01/18 Body Mass [...] MIN 4 Observed: 05/01/2018 Status: F Source: [facility] 2:44 PM [facility] REPOSITORY [facility] Imaging Services [address] [place] [address] L/S Spine Min 4 Views MR#: [id number] Acct: [id number] Name: JOE NOLAND Rep #: [id number] : 1955 M 62 From: Mayco Douglas DO PCP: Edward Villa MD Status: REG CLI Study: L/S Spine Min 4 Views Date of Exam: 05/01/18 Exam# [id number] Ordering Dr: Randa Javier MD STUDY: X-RAY [...] Mayco Douglas DO at 20:52 EST Tel [phone], Service support , CC: Randa Javier MD; Edward Villa MD Assistant Secretary: Signed EMERGENCY DEPARTMENT Observed: 04/24/2018 Status: F Source: [place] SUMMARY 11:50 AM [facility] REPOSITORY [facility] Medical Records Department [address] [place] [address] Emergency Department Summary 04/24/18 1038 MR#: [id number] Acct: [id number] Name: JOE NOLAND Rep #: [id number] : 1955 62 From: Martin Davis PCP: [...] procedure. Initial plan was for patient to cone picker Dilaudid from pharmacy and go back to [...] back pain This note was generated with [employer] dictation software. It may contain incorrect words, [...] problems, contact your Primary Care Provider. Call [facility] ([phone]) or report to the closest Emergency Room. Call 911 if necessary. 04/24/18 1150 <Electronically signed by Martin Davis> Date Martin Davis Cosigner Signature (If Indicated): Date CC: Edward Villa MD MISCELLANEOUS LAB Collected: 04/06/2018 Status: F Source: [place] PROCEDURE 8:47 AM [facility] REPOSITORY Order Comment: Comments: QFT Test(s) Ordered: [id number] TYPE CODE TESTS RESULT OUT OF RANGE REFERENCE UNITS LAB L801.1541 Normal [facility] [place] Result Comment: TEST RESULT UNITS [...] production of interferon gamma. TESTING PERFORMED AT [facility]. ORIGINAL REPORT ON FILE IN LAB CONTAINS ADDITIONAL TEST SITE INFORMATION. Performed By: #### L801.1541 #### [facility] [address] [place], [address] ERYTHROCYTE SED RATE Collected: 04/06/2018 Status: F Source: [place] 8:46 AM [facility] REPOSITORY TYPE CODE TESTS RESULT OUT OF RANGE REFERENCE UNITS LAB L102.0000 0-20 mm/hr High SED RATE 21 Performed By: #### L101.9900 #### [facility] [address] [place], [address] URINE HISTOPLASMA Collected: 04/06/2018 Status: F Source: [place] ANTIGEN 8:46 AM [facility] REPOSITORY TYPE CODE TESTS RESULT OUT OF RANGE REFERENCE UNITS LAB L3100.0902 Normal UR HISTO AG Result Comment: TEST RESULT LIMITS Histoplasma Gal'janice Ag Ur Histoplasma Gal'janice Ag Ur <0.5 <0.5 ng/mL Disclaimer: This test was developed and its performance characteristics determined by [facility]. It has not been cleared or approved by the Food and Drug Administration. Angiotensin-Converting Enzyme YUE 24 U/L 14 - 82 Histoplasma Abs, Qn, DID Negative Neg:<1:1 TESTING PERFORMED AT [facility]. ORIGINAL REPORT ON FILE IN LAB CONTAINS ADDITIONAL TEST SITE INFORMATION. Performed By: #### L3100.0902 #### [facility] (refer to report for specific site) refer to report for address and phone number PET/CT TUMOR BASE Observed: 03/26/2018 Status: F Source: [place] -THIGH INIT 5:56 AM [facility] REPOSITORY [facility] Imaging Services [address] [place] [address] PET/CT Tumor Base -Thigh Init MR#: [id number] Acct: [id number] Name: JOE NOLAND Rep #: [id number] : 1955 M 62 From: Ayush Whipple DO PCP: Edward Villa MD Status: REG CLI Study: PET/CT Tumor Base -Thigh Init Date of Exam: 03/26/18 Exam# [id number] Ordering Dr: Edward Villa MD EXAMINATION: FDG [...] lobe, fulfills quantitative criteria for viable neoplasm. (Delacruz et al, Annals of Internal Medicine, 138:724, 2003). 3. 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 (Josse et al, Journal of Clinical Oncology 16:2142, 1998). 4. Facilitated FDG uptake defined in the right mid posterolateral lung zone-right lower lobe and left lower lateral lung field, left lower lobe, do not fulfill quantitative criteria for viable neoplasm. Electronic Signature Ayush Whipple D.O. Electronically Signed: Ayush Whipple DO at 23:38 EDT Tel , Service support , CC: Edward Villa MD Assistant Secretary: Signed COMPREHENSIVE METABOLIC Collected: 03/01/2018 Status: F Source: [place] 8:53 AM [facility] REPOSITORY TYPE CODE TESTS RESULT OUT OF [...] 7 Performed By: #### L500.4050, L500.4100 #### [facility] [address] [place], [address] LIPID PROFILE Collected: 03/01/2018 Status: F Source: [place] 8:53 AM [facility] REPOSITORY TYPE CODE TESTS RESULT OUT OF [...] VLDL Performed By: #### L500.4050, L500.4100 #### [facility] [address] [place], [address] HEMOGLOBIN A1C Collected: 03/01/2018 Status: F Source: [place] 8:53 AM [facility] REPOSITORY TYPE CODE TESTS RESULT OUT OF RANGE REFERENCE UNITS LAB L501.9985 4.2-6.3 % Normal HGB A1C 5.4 Performed By: #### L501.9985 #### [facility] [address] [place], [address] CREATININE FINGERSTICK Collected: 02/07/2018 Status: F Source: [place] 4:10 PM [facility] REPOSITORY TYPE CODE TESTS RESULT OUT OF RANGE REFERENCE UNITS LAB L9100.0210 0.70-1.30 mg/dL Normal CREATININE WB 0.8 LAB L9100.0220 >60 mL/min EGFR WB Normal > 60.0000 Performed By: #### L9100.0200 #### [facility] Point of Care [address] [place] [address] CHEST WITH CONTRAST Observed: 02/07/2018 Status: F Source: [place] 3:59 PM [facility] REPOSITORY [facility] Imaging Services [address] [place] [address] Chest WITH Contrast MR#: [id number] Acct: [id number] Name: JOE NOLAND Rep #: [id number] : 1955 M 62 From: Min Mortensen MD PCP: Edward Villa MD Status: REG CLI Study: Chest WITH Contrast Date of Exam: 02/07/18 Exam# [id number] Ordering Dr: Edward Villa MD STUDY: CT [...] Service support , CC: Edward Villa MD Assistant Secretary: Signed ABDOMEN/PELVIS WITH Observed: 02/07/2018 Status: F Source: [place] CONTRAST 3:56 PM [facility] REPOSITORY [facility] Imaging Services [address] [place] [address] Abdomen/Pelvis WITH Contrast MR#: [id number] Acct: [id number] Name: JOE NOLAND Rep #: [id number] : 1955 M 62 From: Obdulia Mosley MD PCP: Edward Villa MD Status: REG CLI Study: Abdomen/Pelvis WITH Contrast Date of Exam: 02/07/18 Exam# [id number] Ordering Dr: Edward Villa MD STUDY: CT [...] Service support , CC: Edward Villa MD Assistant Secretary: Signed SPINE LUMBAR Observed: 12/25/2017 Status: F Source: [place] (ROUTINE) 4:17 PM [facility] REPOSITORY [facility] Imaging Services [address] [place] [address] Spine Lumbar (Routine) MR#: [id number] Acct: [id number] Name: JOE NOLAND Rep #: [id number] : 1955 M 62 From: Aydin Laird PCP: Edward Villa MD Status: REG CLI Study: Spine Lumbar (Routine) Date of Exam: 12/25/17 Exam# [id number] Ordering Dr: Mayra Stockton MD STUDY: MRI [...] CC: Mayra Stockton MD; Edward Villa MD Assistant Secretary: Signed CBC W/DIFF, AUTOMATED Collected: 11/24/2017 Status: F Source: [place] 9:00 AM [facility] REPOSITORY TYPE CODE TESTS RESULT OUT OF [...] Lymph 1.47 Performed By: #### L100.0100 #### [facility] [address] [place], [place], [address] HEMOGLOBIN A1C Collected: 11/24/2017 Status: F Source: [place] 9:00 AM [facility] REPOSITORY TYPE CODE TESTS RESULT OUT OF RANGE REFERENCE UNITS LAB L501.9985 4.2-6.3 % Normal HGB A1C 5.9 Performed By: #### L501.9985 #### [facility] [address] [place], [address] COMPREHENSIVE METABOLIC Collected: 11/24/2017 Status: F Source: [facility] 9:00 AM [facility] REPOSITORY TYPE CODE TESTS RESULT OUT OF [...] GAP Performed By: #### L500.4050, L501.9520 #### [facility] [address] [facility] [place], [address] THYROID STIM HORMONE Collected: 11/24/2017 Status: F Source: [place] (TSH) 9:00 AM [facility] REPOSITORY TYPE CODE TESTS RESULT OUT OF RANGE REFERENCE UNITS LAB L501.9520 0.358-3.74 uIU/mL Normal TSH 1.19 Performed By: #### L500.4050, L501.9520 #### [facility] [address] [place], [place], [address] CBC W/DIFF, AUTOMATED Collected: 09/20/2017 Status: C Source: [place] 8:53 AM [facility] REPOSITORY TYPE CODE TESTS RESULT OUT OF [...] as: October Performed By: #### L100.0100 #### [facility] [place], [address] INSULIN Collected: 09/20/2017 Status: F Source: [place] 8:53 AM [facility] REPOSITORY TYPE CODE TESTS RESULT OUT OF RANGE REFERENCE UNITS LAB [id number] 2.6-37.6 mU/L Normal Insulin 31.7 Result Comment: Please Note: INSULIN METHOD AND REFERENCE RANGE CHANGE Effective 06/15/2017. Performed By: #### [id number], L506.1000 #### [facility] [address] [place], [address] VITAMIN D,25 HYDROXY Collected: 09/20/2017 Status: F Source: [place] 8:53 AM [facility] REPOSITORY TYPE CODE TESTS RESULT OUT OF REFERENCE UNITS RANGE LAB L506.1000 29.95-100.01 ng/mL Low Vitamin D 17.9 25-OH Result Comment: Vitamin D 25(OH) Status Range Deficiency <20 ng/mL (50nmol/L) Insuffciency 20 - 30 ng/mL (50 - 75 nmol/L) Sufficiency 30 - 100 ng/mL (75 - 250 nmol/L) Toxicity >100 ng/mL (>250 nmol/L) Performed By: #### [id number], L506.1000 #### [facility] [address] [place], [address] HEMOGLOBIN A1C Collected: 09/20/2017 Status: F Source: [place] 8:53 AM [facility] REPOSITORY TYPE CODE TESTS RESULT OUT OF RANGE REFERENCE UNITS LAB L501.9985 4.2-6.3 % Normal HGB A1C 5.9 Performed By: #### L501.9985 #### [facility] [address] [place], [address] COMPREHENSIVE METABOLIC Collected: 09/20/2017 Status: F Source: [place] PROFIL 8:53 AM [facility] REPOSITORY TYPE CODE TESTS RESULT OUT OF [...] Normal 7 GAP Performed By: #### L500.4050, L501.44431, L501.9520, L506.0400 #### [facility] [address] [place], [address] FREE T3 Collected: 09/20/2017 Status: F Source: [place] 8:53 AM [facility] REPOSITORY TYPE CODE TESTS RESULT OUT OF RANGE REFERENCE UNITS LAB L501.61370 2.18-3.98 pg/mL Normal FREE T3 3.4 Performed By: #### L500.4050, L501.16610, L501.9520, L506.0400 #### [facility] [address] [facility] [place], [address] THYROID STIM HORMONE Collected: 09/20/2017 Status: F Source: [place] (TSH) 8:53 AM [facility] REPOSITORY TYPE CODE TESTS RESULT OUT OF RANGE REFERENCE UNITS LAB L501.9520 0.358-3.74 uIU/mL Normal TSH 0.72 Performed By: #### L500.4050, L501.92180, L501.9520, L506.0400 #### [facility] [address] [facility] [place], [address] T4 FREE DIRECT Collected: 09/20/2017 Status: F Source: [place] 8:53 AM [facility] REPOSITORY TYPE CODE TESTS RESULT OUT OF RANGE REFERENCE UNITS LAB L506.0400 0.76-1.46 ng/dL Normal T4 FREE 1.01 DIRECT Performed By: #### L500.4050, L501.28005, L501.9520, L506.0400 #### [facility] [address] [facility] [place], [address] LIPOPROTEIN A Collected: 09/20/2017 Status: F Source: [place] 8:53 AM [facility] REPOSITORY TYPE CODE TESTS RESULT OUT OF RANGE REFERENCE UNITS LAB L3400.4600 <75 nmol/L Lipoprotein Normal A <10 Result Comment: Note: Values greater than or equal to 75 nmol/L may indicate an independent risk factor for CHD, but must be evaluated with caution when applied to non- populations due to the influence of genetic factors on Lp(a) across ethnicities. Performed at: - [facility] [address] [id number] Production Associate: Jose Lamb PhD, Phone: [phone] Performed By: #### L3400.4600 #### [facility] (refer to report for specific site) refer to report for address and phone number NMR LIPOPROFILE Collected: 09/20/2017 Status: F Source: [place] 8:53 AM [facility] REPOSITORY TYPE CODE TESTS RESULT OUT OF [...] developed and their performance characteristics determined by el?. These assays have not been cleared by [...] SEVERITY SOURCE 05/01/2018 Drug duloxetine/F0 ANXIETY Unknown [place] [facility] All[facility]/4160 [id number]([facility] 54283(SNOMED RM) Repository CT) 04/24/2018 Drug No Known Unknown [place] [facility] Allergy/4160 Allergies/F00 [place] 1013902(SNOMED 3326983(RXNOR Repository CT) M) ENCOUNTERS ENCOUNTERS ADMIT/DISCHARGE ACCOUNT ADMITTING ENCOUNTER LOCATION SOURCE NUMBER CLASS 06/21/2018 [id number] Ambulatory [place] 6 [facility] ing:CT Repository 05/30/2018 [id number] Ambulatory [place] 1 [facility] ing:MRI Repository 05/21/2018 [id number] Ambulatory [place] 7 [facility] ing:BFHLAB Repository 05/01/2018 [id number] Ambulatory [place] 1 [facility] ing:HPRAD Repository 05/01/2018/ [id number] Ambulatory BMSBuilding:B [place] [facility] 3 [facility] Repository 04/24/2018/ [id number] Emergency [place] 8 8 [facility] ing:ED Repository 04/06/2018 [id number] Ambulatory [place] 5 [facility] ing:BFHLAB Repository 03/26/2018 [id number] Ambulatory [place] 4 [facility] ing:ONC Repository 03/01/2018 [id number] Ambulatory [place] 5 [facility] ing:BFHLAB Repository 02/07/2018 [id number] Ambulatory [place] 0 [facility] ing:CT Repository 01/26/2018 [id number] Ambulatory [place] 1 [facility] [facility] [place] ing:RAD.FUTUR Repository E 12/25/2017 [id number] Ambulatory Merrill Merrill 7 [facility] [place] ing:MRI Repository 11/24/2017 [id number] Ambulatory Merrill Merrill 5 [facility] [place] ing:LAB.FUTUR Repository E 09/20/2017 [id number] Ambulatory Merrill Jes 2 [facility] [place] ing:BFHLAB Repository PAYERS PAYERS ENCOUNTER GUARANTOR PAYER SUBSCRIBER SOURCE 06/21/2018 JOE NOLAND511 Primary JOE GEORGEERSON Insurance:[employer] BOW[place]: [place] PPOPolicy [id number] Hospital [address]Sib: [phone] Number: Repository [phone] () [id number] Date:7415-48-97QP [address] [address]MZ: 06/21/2018 Secondary NOT GIVENUNK Jes Insurance:SELF PAY [facility] Number: Effective Repository Date:2018-06-14 05/30/2018 JOE NOLAND511 Primary JOE SALINAS Insurance:[facility] [employer] BOWENDOB: [facility] [id number] Hospital [address]Vax: [phone]) Number: Repository [phone] ([phone]) [id number] Date: [address] [address]NM: 05/30/2018 Secondary NOT GIVENUNK Merrill Insurance:SELF PAY [facility] Number: Effective Repository Date:2018-05-17 05/21/2018 JOE [id number] Primary JOE SALINAS Insurance:[employer] BOW[place]OB: [place] PPOPolicy [id number] Hospital [address]Ndq: [phone] Number: Repository [phone] () [id number] Date:1803-71-77FN [address] [address]AT: 05/21/2018 Secondary NOT GIVENUNK Jes Insurance:SELF PAY [facility] Number: Effective Repository Date:2018-05-21 05/01/2018 JOE Freeman [id number] Primary JOE SALINAS Insurance:OB HEALTH BOWENDOB: [facility] [id number] Hospital [address]Tyu: [phone] Number: Repository [phone] () [id number] Date: [address] [place] [address]KB: 05/01/2018 Secondary NOT GIVENUNK Merrill Insurance:SELF PAY [facility] Number: Effective Repository Date:2018-05-01 05/01/2018 JOE Freeman [id number] Primary JOE SALINAS Insurance:[employer] [place]OW[place]OB: [place] PPOPolicy [id number] Hospital [address]Epv: [phone] Number: Repository [phone] () [id number] Date:3981-90-30ED [address] [address]PK: 05/01/2018 Secondary NOT GIVENUNK Jes Insurance:SELF PAY [facility] Number: Effective Repository Date:2018-04-24 04/24/2018 JOE Freeman [id number] Primary JOE SALINAS Insurance:OB HEALTH BOWENDOB: [facility] [id number] Hospital [address]Tqm: [phone] Number: Repository [phone] () [id number] Date: [address] [address]KK: 04/24/2018 Secondary JOE Lydia Jes Insurance:HU[employer] BOWENDOB: Community MEDICARE PPOPolicy [id number] Hospital Number: Repository [id number] Date:3136-12-38UJ [place] [id number]: 04/24/2018 Tertiary NOT GIVENUNK Merrill Insurance:SELF PAY [facility] Number: Effective Repository Date:2018-04-24 04/06/2018 JOE Freeman [id number] Primary JOE Andre RITA Insurance:[employer] BOWENDOB: [place] PPOPolicy [id number] Hospital [address]Fon: [phone]) Number: Repository [phone] () [id number] Date:7548-50-27KT [place] [id number]: 04/06/2018 Secondary NOT GIVENUNK Jes Insurance:SELF PAY [facility] Number: Effective Repository Date:2018-04-06 03/26/2018 JOE Freeman [id number] Primary JOE Andre RITA Insurance:HU[employer]NA BOWENDOB: [place] PPOPolicy [id number] Hospital [address]Eqo: [phone] Number: Repository [phone] () [id number] Date:9147-04-80CM [address] [address]TJ: 03/26/2018 Secondary NOT GIVENUNK Jes Insurance:SELF PAY [facility] Number: Effective Repository Date:2018-03-22 03/01/2018 JOE Freeman [id number] Primary JOE Lomelioster RITA Insurance:HU[employer]NA BOWENDOB: [place] PPOP[place]icy [id number] Hospital [address]Gub: ([phone]) Number: Repository [phone] () [id number] Date:5617-63-74SK [address] [address]UY: 03/01/2018 Secondary NOT GIVENUNK Jes Insurance:SELF PAY [facility] Number: Effective Repository Date:2018-03-01 02/07/2018 JOE Freeman [id number] Primary JOE SALINAS Insurance:HU[employer] BOWENDOB: [place] PPOP[place]icy [id number] Hospital [address]Uec: [phone]) Number: Repository [phone] () [id number] Date:7901-38-16BS [place] [id number]: 02/07/2018 Secondary NOT GIVENUNK Merrill Insurance:SELF PAY [facility] Number: Effective Repository Date:2018-01-25 01/26/2018 JOE Freeman [id number] Primary JOE SALINAS Insurance:[employer] BOWENDOB: [place] PPOP[place] [id number] Hospital [address]Dit: [phone]) Number: Repository [phone] () [id number] Date:9738-73-49FG [place] [id number]: 01/26/2018 Secondary NOT GIVENUNK Merrill Insurance:SELF PAY [facility] Number: Effective Repository Date:2018-01-26 12/25/2017 JOE Freeman [id number] Primary JOE SALINAS Insurance:[facility] BOWENDOB: [facility] [id number] Hospital [address]Itp: [phone] Number: Repository [phone] () [id number] Date: [address] [address]EQ: 12/25/2017 Secondary NOT GIVENUNK Jes Insurance:SELF PAY [facility] Number: Effective Repository Date:2017-12-22 11/24/2017 Joe Freeman [id number] Primary Joe Salinas Insurance:HUMANA [place]en[place]OB[place] PPOPolicy [id number] Hospital [address]Mkw: (330) Number: Repository [phone] () [id number] Date:8388-26-74XD [address] [place] [address]EC: 11/24/2017 Secondary NOT GIVENUNK Jes Insurance:SELF PAY [facility] Number: Effective Repository Date:2017-11-24 09/20/2017 Joe Noland511 Primary Joe Salinas Insurance:MISAEL CarrizalesOB: [place] PPOPolicy [id number] Hospital [address]Csm: (330) Number: Repository [phone] () [id number] Date:7024-27-12NC [address] [place] [address]FC: 09/20/2017 Secondary NOT GIVENUNK Merrill Insurance:SELF PAY [facility] Number: Effective Repository Date:2017-09-20
== END ==
PROVIDERS: Family Provider Family Medicine; PCP Family Medicine; Visit Provider Internal Medicine Endocrinology, Diabetes & Metabolism
DX: E78.1 Pure hyperglyceridemia (principal)
CPT/HCPCS: 36415; 80053; 80061; 83036; 85025

== ENCOUNTER → 2018-05-30 16:55 | Outpatient (CLI) | payer OTHER, SELFPAY ==
--- NOTE | 2018-05-30 17:30 | MRI_ITS ---
STUDY: MRI LUMBAR SPINE WITH AND WITHOUT CONTRAST REASON FOR EXAM: Male, 62 years old. Low back pain and sharp pains in left leg TECHNIQUE: Standardized fat and water weighted pulse sequences were obtained in the sagittal and axial planes. 7 ml of Gadavist contrast material was administered for the contrast portion of the examination. COMPARISON: 12/25/2017 FINDINGS: T12-L1: Normal endplates. Normal disc height, hydration and morphology. Normal bilateral facet joints. Normal central canal and bilateral lateral recesses. Normal bilateral intervertebral neural foramina. Normal lumbar lordosis. There is no substantial scoliosis. Normal conus medullaris that terminates at the L1 level. L1-2: Bulging annulus with mild bilateral foraminal stenoses. L2-3: Bulging annulus with moderate right foraminal stenosis. L3-4: Left subarticular disc protrusion with impingement of the transiting left L4 nerve root. Bulging annulus with mild bilateral foraminal stenoses. L4-5: Bulging annulus and central disc protrusion with moderate central canal stenosis and mild bilateral foraminal stenoses. Right laminotomy. L5-S1: Bulging annulus and broad central disc protrusion with mild bilateral foraminal stenoses. Normal visualized sacral ala. Normal visualized paraspinous soft tissue structures. MRI/Spine Lumbar W/WO Contrast IMPRESSION: Stable multilevel degenerative disc disease. Disc protrusion at L3-4 with mass effect on the transiting left L4 nerve root. Electronically Signed: Min Mortensen MD at 7:13 EST Tel , Service support ,
== END ==
PROVIDERS: Family Provider Family Medicine; PCP Family Medicine; Referring Provider Orthopaedic Surgery; Visit Provider Orthopaedic Surgery
DX: M51.36 Other intervertebral disc degeneration, lumbar region (principal); M79.605 Pain in left leg; M51.26 Other intervertebral disc displacement, lumbar region
CPT/HCPCS: 72158; A9585

== ENCOUNTER → 2018-06-21 14:21 | Outpatient (CLI) | payer MEDICARE, SELFPAY ==
--- NOTE | 2018-06-21 14:26 | CT_ITS ---
STUDY: CT MAXILLOFACIAL SINUSES REASON FOR EXAM: Male, 62 years old. Palpable lump right anterior aspect of RADIATION DOSAGE (If Supplied By Facility): CTDIvol = ( 29.38 ) mGy, DLP = ( 503.38 ) mGycm TECHNIQUE: The patient was scanned in a multi detector CT scanner. High resolution axial imaging was performed without the administration of intravenous contrast material. Sagittal and coronal images were reconstructed. Individualized dose optimization techniques were used for this CT. COMPARISON: None. FINDINGS: : There is a 2.4 x 1.9 cm soft tissue mass originating from the inferior aspect of the right buccinator muscle and eroding into the anterior aspect of the right maxillary ridge. The lesion forms part of the anterior floor of the right maxillary sinus. There are no inflammatory changes within the right maxillary sinus or any of the paranasal sinuses. The nasal septum is midline. The cribriform plate and sudhir mitzi are intact. The lamina papyracea, the turbinates and both ostiomeatal units are normal. . CT/Sinus/Facial Bone IMPRESSION: A benign looking 2.4 x 1.5 cm soft tissue mass originating from the inferior aspect of the right buccinator space/muscle and is eroding into the anterior aspect of the right maxillary ridge. The mass forms part of the anterior floor of the right maxillary sinus. There is however no evidence of any right maxillary sinusitis. The rest of the paranasal sinuses are normal. Further evaluation with an MRI or tissue biopsy is suggested Electronically Signed: Sabas Nicole MD at 6:28 EST Tel , Service support ,
--- OUTSIDE RECORDS SUMMARY | 2018-08-26 09:28 | XMS RPT_ITS ---
:1955 Author Organization OHIP Support Name Relationship Address Phone LUDIN JOSIE Unavailable [address] + [place] [address] D Unavailable Unavailable Unavailable JOSIE NOLAND Unavailable [address] + [place] [address] D Unavailable Unavailable Unavailable JOSIE NOLAND Unavailable [address] + [place] [address] D Unavailable Unavailable Unavailable JOSIE NOLAND Unavailable [address] + [place] [address] D Unavailable Unavailable Unavailable JOSIE NOLAND Unavailable [address] + [place] [address] D Unavailable Unavailable Unavailable JOSIE NOLAND Unavailable [address] + [place] [address] D Unavailable Unavailable Unavailable JOSIE NOLAND Unavailable [address] + [place] [address] D Unavailable Unavailable Unavailable ALEXI NOLANDIE Unavailable [address] + [place] [address] D Unavailable Unavailable Unavailable JOSIE NOLAND Unavailable [address] + [place] [address] D Unavailable Unavailable Unavailable ALEXI NOLANDIE Unavailable [address] + [place] [address] D Unavailable Unavailable Unavailable JOSIE NOLAND Unavailable [address] + [place] [address] D Unavailable Unavailable Unavailable ALEXI NOLANDIE Unavailable [address] + [place] [address] D Unavailable Unavailable Unavailable LAEXI NOLANDIE Unavailable [address] + [place] [address] D Unavailable Unavailable Unavailable NOLAND, JOSIE Unavailable [address] + [place] [address] D Unavailable Unavailable Unavailable Care Team Providers Name Role Phone Chanelle Jay Attending Unavailable Allen, Edward Primary Care Unavailable Randa Javier Attending Unavailable Concepcion Randa Referring Unavailable Allen, Edward Primary Care Unavailable Misty, Chanelle Rosei Attending Unavailable Allen, Edward Primary Care Unavailable [...] pain Randa Javier Active [place] / M54.5(ICD-10) [facility] [place] 04/16/2018 Unknown R91.1 - Solitary Sibilia, Active [place] pulmonary nodule / [facility] R91.1(ICD-10) Hospital Repository 11/24/2017 Unknown R73.03 - Prediabetes / Raghunathan, Active [place] R73.03(ICD-10) [facility] Repository 09/20/2017 Unknown E78.1 - Pure Raghunathan, Active [place] hyperglyceridemia / Chanelle [facility] E78.1(ICD-10) Hospital Repository PROCEDURES PROCEDURES No Procedure Records FoundRESULTS RESULTS SINUS/FACIAL BONE Observed: 06/21/2018 Status: F Source: [place] 2:26 PM [facility] REPOSITORY [facility] [address] [place] [address] Sinus/Facial Bone MR#: [id number] Acct: [id number] Name: JOE NOLAND Rep #: [id number] : 1955 M 62 From: Sabas Nicole MD PCP: Edward Villa MD Status: REG CLI Study: Sinus/Facial Bone Date of Exam: 06/21/18 Exam# [id number] Ordering Dr: Marcin Falk MD STUDY: CT [...] CC: Marcin Falk MD; Edward Villa MD Remedy Developer: Signed SPINE LUMBAR W/WO Observed: 05/30/2018 Status: F Source: [place] CONTRAST 4:58 PM [facility] [place] [facility] [address] [place] [address] Spine Lumbar W/WO Contrast MR#: [id number] Acct: [id number] Name: JOE NOLAND Rep #: [id number] : 1955 M 62 From: Min Mortensen MD PCP: Edward Villa MD Status: REG CLI Study: Spine Lumbar W/WO Contrast Date of Exam: 05/30/18 Exam# [id number] Ordering Dr: Randa Javier MD STUDY: MRI [...] CC: Randa Javier MD; Edward Villa MD Remedy Developer: Signed CBC W/DIFF, AUTOMATED Collected: 05/21/2018 Status: C Source: [place] 8:47 AM [facility] [place] TYPE CODE TESTS RESULT OUT OF [...] October marcus Performed By: #### L100.0100 #### [facility] [address] [place], [address] COMPREHENSIVE METABOLIC Collected: 05/21/2018 Status: F Source: [facility] 8:47 AM [facility] [place] TYPE CODE TESTS RESULT OUT OF [...] 9 Performed By: #### L500.4050, L500.4100 #### [facility] [address] [facility] [address] [place], [place], [address] LIPID PROFILE Collected: 05/21/2018 Status: F Source: [place] 8:47 AM [facility] [place] TYPE CODE TESTS RESULT OUT OF [...] VLDL Performed By: #### L500.4050, L500.4100 #### [facility] [address] [facility] [place], [place], [address] HEMOGLOBIN A1C Collected: 05/21/2018 Status: F Source: [place] 8:47 AM [facility] [place] TYPE CODE TESTS RESULT OUT OF RANGE REFERENCE UNITS LAB L501.9985 4.2-6.3 % Normal HGB A1C 5.5 Performed By: #### L501.9985 #### [facility] [address] [place], [place], [address] ORTHOPEDIC VISIT Observed: 05/12/2018 Status: F Source: [place] REPORT 11:51 AM [facility] [place] [facility] [address] [facility] [address] [place] [address] OFFICE VISIT Date of Service: 05/01/18 MR#: [id number] Acct: [id number] Name: JOE NOLAND Rep #: [id number] : 1955 Provider: Randa Javier MD Age/Sex: 62/M Location: [facility] Status: Signed Intake Vital Signs05/01/18 Body Mass [...] MIN 4 Observed: 05/01/2018 Status: F Source: [facility] 2:44 PM [facility] [place] [facility] [address] [place] [address] L/S Spine Min 4 Views MR#: [id number] Acct: [id number] Name: JOE NOLAND Rep #: [id number] : 1955 M 62 From: Mayco Douglas DO PCP: Edward Villa MD Status: REG CLI Study: L/S Spine Min 4 Views Date of Exam: 05/01/18 Exam# [id number] Ordering Dr: Randa Javier MD STUDY: X-RAY [...] Mayco Douglas DO at 20:52 EST Tel [phone], Service support , CC: Randa Javier MD; Edward Villa MD Remedy Developer: Signed EMERGENCY DEPARTMENT Observed: 04/24/2018 Status: F Source: [place] SUMMARY 11:50 AM [facility] [place] [facility] [address] [place] [address] Emergency Department Summary 04/24/18 1038 MR#: [id number] Acct: [id number] Name: JOE NOLAND Rep #: [id number] : 1955 62 From: Martin Davis PCP: [...] procedure. 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 It may contain incorrect words, [...] your Primary Care Provider. Call [facility] ([phone]) or report to the closest Emergency Room. Call 911 if necessary. 04/24/18 1150 <Electronically signed by Martin Davis> Date Martin Davis Cosigner Signature (If Indicated): Date CC: Edward Villa MD MISCELLANEOUS LAB Collected: 04/06/2018 Status: F Source: [place] PROCEDURE 8:47 AM [facility] [place] Order Comment: Comments: QFT Test(s) Ordered: [id number] TYPE CODE TESTS RESULT OUT OF RANGE REFERENCE UNITS LAB L801.1541 Normal [facility] LAB TEST Result Comment: TEST RESULT UNITS [...] SITE INFORMATION. Performed By: #### L801.1541 #### [facility] [address] [place], [address] ERYTHROCYTE SED RATE Collected: 04/06/2018 Status: F Source: [place] 8:46 AM [facility] [place] TYPE CODE TESTS RESULT OUT OF RANGE REFERENCE UNITS LAB L102.0000 0-20 mm/hr High SED RATE 21 Performed By: #### L101.9900 #### [facility] [address] [place], [address] URINE HISTOPLASMA Collected: 04/06/2018 Status: F Source: [place] ANTIGEN 8:46 AM [facility] [place] TYPE CODE TESTS RESULT OUT OF [...] Qn, DID Negative Neg:<1:1 TESTING PERFORMED AT [facility]. ORIGINAL REPORT ON FILE IN LAB CONTAINS ADDITIONAL TEST SITE INFORMATION. Performed By: #### L3100.0902 #### [facility] (refer to report for specific site) refer to report for address and phone number PET/CT TUMOR BASE Observed: 03/26/2018 Status: F Source: [place] -THIGH INIT 5:56 AM [facility] [place] [facility] [address] [place] [address] PET/CT Tumor Base -Thigh Init MR#: [id number] Acct: [id number] Name: JOE NOLAND Rep #: [id number] : 1955 M 62 From: Auysh Whipple DO PCP: Edward Villa MD Status: REG CLI Study: PET/CT Tumor Base -Thigh Init Date of Exam: 03/26/18 Exam# [id number] Ordering Dr: Edward Villa MD EXAMINATION: FDG [...] Service support , CC: Edward Villa MD Remedy Developer: Signed COMPREHENSIVE METABOLIC Collected: 03/01/2018 Status: F Source: [place] 8:53 AM [facility] [place] TYPE CODE TESTS RESULT OUT OF [...] 7 Performed By: #### L500.4050, L500.4100 #### [facility] [address], [address] LIPID PROFILE Collected: 03/01/2018 Status: F Source: [place] 8:53 AM [facility] [place] TYPE CODE TESTS RESULT OUT OF [...] VLDL Performed By: #### L500.4050, L500.4100 #### [facility] [address] [place], [address] HEMOGLOBIN A1C Collected: 03/01/2018 Status: F Source: [place] 8:53 AM [facility] [place] TYPE CODE TESTS RESULT OUT OF RANGE REFERENCE UNITS LAB L501.9985 4.2-6.3 % Normal HGB A1C 5.4 Performed By: #### L501.9985 #### [facility] [address] [place], [address] CREATININE FINGERSTICK Collected: 02/07/2018 Status: F Source: [place] 4:10 PM [facility] [place] TYPE CODE TESTS RESULT OUT OF RANGE REFERENCE UNITS LAB L9100.0210 0.70-1.30 mg/dL Normal CREATININE WB 0.8 LAB L9100.0220 >60 mL/min EGFR WB Normal > 60.0000 Performed By: #### L9100.0200 #### [facility] Point of Care [address] [place] [address] CHEST WITH CONTRAST Observed: 02/07/2018 Status: F Source: [place] 3:59 PM [facility] [place] [facility] [address] [address] Chest WITH Contrast MR#: [id number] Acct: [id number] Name: JOE NOLAND Rep #: [id number] : 1955 M 62 From: Min Mortensen MD PCP: Edward Villa MD Status: REG CLI Study: Chest WITH Contrast Date of Exam: 02/07/18 Exam# [id number] Ordering Dr: Edward Villa MD STUDY: CT [...] Service support , CC: Edward Villa MD Remedy Developer: Signed ABDOMEN/PELVIS WITH Observed: 02/07/2018 Status: F Source: [place] CONTRAST 3:56 PM [facility] [place] [facility] [address] [place] [address] Abdomen/Pelvis WITH Contrast MR#: [id number] Acct: [id number] Name: JOE NOLAND Rep #: [id number] : 1955 M 62 From: Obdulia Mosley MD PCP: Edward Villa MD Status: REG CLI Study: Abdomen/Pelvis WITH Contrast Date of Exam: 02/07/18 Exam# [id number] Ordering Dr: Edward Villa MD STUDY: CT [...] Service support , CC: Edward Villa MD Remedy Developer: Signed SPINE LUMBAR Observed: 12/25/2017 Status: F Source: [place] (ROUTINE) 4:17 PM [facility] [place] [facility] [address] [place] [address] Spine Lumbar (Routine) MR#: [id number] Acct: [id number] Name: JOE NOLAND Rep #: [id number] : 1955 M 62 From: Aydin Laird PCP: Edward Villa MD Status: REG CLI Study: Spine Lumbar (Routine) Date of Exam: 12/25/17 Exam# [id number] Ordering Dr: Mayra Stockton MD STUDY: MRI [...] CC: Mayra Stockton MD; Edward Villa MD Remedy Developer: Signed CBC W/DIFF, AUTOMATED Collected: 11/24/2017 Status: F Source: [place] 9:00 AM [facility] [place] TYPE CODE TESTS RESULT OUT OF [...] Lymph 1.47 Performed By: #### L100.0100 #### [facility] [address] [place], [place], [address] HEMOGLOBIN A1C Collected: 11/24/2017 Status: F Source: [place] 9:00 AM [facility] [place] TYPE CODE TESTS RESULT OUT OF RANGE REFERENCE UNITS LAB L501.9985 4.2-6.3 % Normal HGB A1C 5.9 Performed By: #### L501.9985 #### [facility] [address] [place], [address] COMPREHENSIVE METABOLIC Collected: 11/24/2017 Status: F Source: [facility] 9:00 AM [facility] [place] TYPE CODE TESTS RESULT OUT OF [...] GAP Performed By: #### L500.4050, L501.9520 #### [facility] [address] [facility] [place], [address] THYROID STIM HORMONE Collected: 11/24/2017 Status: F Source: [place] (TSH) 9:00 AM [facility] [place] TYPE CODE TESTS RESULT OUT OF RANGE REFERENCE UNITS LAB L501.9520 0.358-3.74 uIU/mL Normal TSH 1.19 Performed By: #### L500.4050, L501.9520 #### [facility] [address] [place], [place], [address] CBC W/DIFF, AUTOMATED Collected: 09/20/2017 Status: C Source: [place] 8:53 AM [facility] [place] TYPE CODE TESTS RESULT OUT OF [...] as: October Performed By: #### L100.0100 #### [facility] [place], [address] INSULIN Collected: 09/20/2017 Status: F Source: [place] 8:53 AM [facility] [place] TYPE CODE TESTS RESULT OUT OF RANGE REFERENCE UNITS LAB [id number] 2.6-37.6 mU/L Normal Insulin 31.7 Result Comment: Please Note: INSULIN METHOD AND REFERENCE RANGE CHANGE Effective 06/15/2017. Performed By: #### [id number], L506.1000 #### [facility] [address] [place], [address] VITAMIN D,25 HYDROXY Collected: 09/20/2017 Status: F Source: [place] 8:53 AM [facility] [place] TYPE CODE TESTS RESULT OUT OF REFERENCE UNITS RANGE LAB L506.1000 29.95-100.01 ng/mL Low Vitamin D 17.9 25-OH Result Comment: Vitamin D 25(OH) Status Range Deficiency <20 ng/mL (50nmol/L) Insuffciency 20 - 30 ng/mL (50 - 75 nmol/L) Sufficiency 30 - 100 ng/mL (75 - 250 nmol/L) Toxicity >100 ng/mL (>250 nmol/L) Performed By: #### [id number], L506.1000 #### [facility] [address] [place], [address] HEMOGLOBIN A1C Collected: 09/20/2017 Status: F Source: [place] 8:53 AM [facility] [place] TYPE CODE TESTS RESULT OUT OF RANGE REFERENCE UNITS LAB L501.9985 4.2-6.3 % Normal HGB A1C 5.9 Performed By: #### L501.9985 #### [facility] [address] [place], [address] COMPREHENSIVE METABOLIC Collected: 09/20/2017 Status: F Source: [place]IL 8:53 AM [facility] [place] TYPE CODE TESTS RESULT OUT OF [...] Normal 7 GAP Performed By: #### L500.4050, L501.49547, L501.9520, L506.0400 #### [facility] [address] [place], [address] FREE T3 Collected: 09/20/2017 Status: F Source: [place] 8:53 AM [facility] [place] TYPE CODE TESTS RESULT OUT OF RANGE REFERENCE UNITS LAB L501.95254 2.18-3.98 pg/mL Normal FREE T3 3.4 Performed By: #### L500.4050, L501.44565, L501.9520, L506.0400 #### [facility] [address] [facility] [place], [address] THYROID STIM HORMONE Collected: 09/20/2017 Status: F Source: [place] (TSH) 8:53 AM [facility] [place] TYPE CODE TESTS RESULT OUT OF RANGE REFERENCE UNITS LAB L501.9520 0.358-3.74 uIU/mL Normal TSH 0.72 Performed By: #### L500.4050, L501.85112, L501.9520, L506.0400 #### [facility] [address] [facility] [place], [address] T4 FREE DIRECT Collected: 09/20/2017 Status: F Source: [place] 8:53 AM [facility] [place] TYPE CODE TESTS RESULT OUT OF RANGE REFERENCE UNITS LAB L506.0400 0.76-1.46 ng/dL Normal T4 FREE 1.01 DIRECT Performed By: #### L500.4050, L501.79990, L501.9520, L506.0400 #### [facility] [address] [facility] [place], [address] LIPOPROTEIN A Collected: 09/20/2017 Status: F Source: [place] 8:53 AM [facility] [place] TYPE CODE TESTS RESULT OUT OF RANGE REFERENCE UNITS LAB L3400.4600 <75 nmol/L Lipoprotein Normal A <10 Result Comment: Note: Values greater than or equal to 75 nmol/L may indicate an independent risk factor for CHD, but must be evaluated with caution when applied to non- populations due to the influence of genetic factors on Lp(a) across ethnicities. Performed at: - [facility] [address] [id number] Copier Operator: Jose Lamb PhD, Phone: [phone] Performed By: #### L3400.4600 #### [facility] (refer to report for specific site) refer to report for address and phone number NMR LIPOPROFILE Collected: 09/20/2017 Status: F Source: [place] 8:53 AM [facility] [place] TYPE CODE TESTS RESULT OUT OF [...] developed and their performance characteristics determined by [employer]. These assays have not been cleared by [...] SOURCE 05/01/2018 Drug duloxetine/F0 ANXIETY Unknown [place] [facility] Allergy/4160 [id number](RX Hospital 81813(SNOMED RM) Repository CT) 04/24/2018 Drug No Known Unknown [place] [facility] Allergy/4160 Allergies/F00 [place] 7550802(SNOMED 2553222(RXNOR Repository CT) M) ENCOUNTERS ENCOUNTERS ADMIT/DISCHARGE ACCOUNT ADMITTING ENCOUNTER LOCATION SOURCE NUMBER CLASS 06/21/2018 [id number] Ambulatory [place] 6 [facility] ing:CT Repository 05/30/2018 [id number] Ambulatory [place] 1 [facility] ing:MRI Repository 05/21/2018 [id number] Ambulatory [place] 7 [facility] ing:BFHLAB Repository 05/01/2018 [id number] Ambulatory [place] 1 [facility] ing:HPRAD Repository 05/01/2018/ [id number] Ambulatory BMSBuilding:B [place] [facility] Repository 04/24/2018/ [id number] Emergency [place] 8 8 [facility] ing:ED Repository 04/06/2018 [id number] Ambulatory [place] 5 [facility] ing:BFHLAB Repository 03/26/2018 [id number] Ambulatory [place] 4 [facility] ing:ONC Repository 03/01/2018 [id number] Ambulatory [place] 5 [facility] ing:BFHLAB Repository 02/07/2018 [id number] Ambulatory [place] 0 [facility] ing:CT Repository 01/26/2018 [id number] Ambulatory [place] 1 [facility] ing:RAD.FUTUR Repository E 12/25/2017 [id number] Ambulatory [place] 7 [facility] ing:MRI Repository 11/24/2017 [id number] Ambulatory [place] 5 [facility] ing:LAB.FUTUR Repository E 09/20/2017 [id number] Ambulatory [place] 2 [facility] ing:BFHLAB Repository PAYERS PAYERS ENCOUNTER GUARANTOR PAYER SUBSCRIBER SOURCE 06/21/2018 JOE NOLAND511 Primary JOE GEORGEERSON Insurance:[employer] [place]OW[place]OB: [place] PPOPolicy [id number] Hospital [address]Rff: [phone]) Number: Repository [phone] () [id number] Date:7899-14-14TL [address] [address]PS: 06/21/2018 Secondary NOT GIVENUNK [place] Insurance:SELF PAY [facility] Number: Effective Repository Date:2018-06-14 05/30/2018 JOE NOLAND511 Primary JOE SALINAS Insurance:[facility] [employer] BOWENDOB: [facility] [id number] Hospital [address]Fin: [phone]) Number: Repository [phone] (HP) [id number] Date: [address] [address]: 05/30/2018 Secondary NOT GIVENUNK [place] Insurance:SELF PAY [facility] Number: Effective Repository Date:2018-05-17 05/21/2018 JOE [id number] Primary JOE [place]IN[place] Insurance:HUMANA BOW[place]OB: [place] PPOPolicy [id number] Hospital [address]Ruk: [phone]) Number: Repository [phone] () [id number] Date:7003-17-82XK [address] [address]ZC: 05/21/2018 Secondary NOT GIVENUNK [place] Insurance:SELF PAY [facility] Number: Effective Repository Date:2018-05-21 05/01/2018 JOE Freeman [id number] Primary JOE SALINAS Insurance:OB HEALTH BOWENDOB: [facility] [id number] Hospital [address]Tqf: (330) Number: Repository [phone] () [id number] Date: [address] [place] [place] [address]EW: 05/01/2018 Secondary NOT GIVENUNK [place] Insurance:SELF PAY [facility] Number: Effective Repository Date:2018-05-01 05/01/2018 JOE Freeman [id number] Primary JOE SALIN[place] Insurance:HUMANA BOWENDOB: [place] PPOPolicy [id number] Hospital [address]Mzv: (330) Number: Repository [phone] () [id number] Date:4555-89-30VT [address] [address]VF: 05/01/2018 Secondary NOT GIVENUNK [place] Insurance:SELF PAY [facility] Number: Effective Repository Date:2018-04-24 04/24/2018 JOE Freeman [id number] Primary JOE SALINAS Insurance:OB HEALTH BOWENDOB: [facility] [id number] Hospital [address]Lua: (330) Number: Repository [phone] () [id number] Date: [address], [place] [address]OD: 04/24/2018 Secondary JOE Lydia [place] Insurance:HUMANA BOWENDOB: Community MEDICARE PPOPolicy [id number] Hospital Number: Repository [id number] Date:3068-51-99QQ [place] [address]WP: 04/24/2018 Tertiary NOT GIVENUNK [place] Insurance:SELF PAY [facility] Number: Effective Repository Date:2018-04-24 04/06/2018 JOE Freeman [id number] Primary JOE Andre [place] Insurance:HUMANA BOWENDOB: [place] PPOPolicy [id number] Hospital [address]Iiw: (330) Number: Repository [phone] () [id number] Date:4145-00-01PO [place] [address]WP: 04/06/2018 Secondary NOT GIVENUNK [place] Insurance:SELF PAY [facility] Number: Effective Repository Date:2018-04-06 03/26/2018 JOE Freeman [id number] Primary JOE Andre [place] Insurance:HUMANA BOWENDOB: [place] PPOPolicy [id number] Hospital [address]Shh: [phone]) Number: Repository [phone] () [id number] Date:3243-55-00TL [address] [address]KI: 03/26/2018 Secondary NOT GIVENUNK [place] Insurance:SELF PAY [facility] Number: Effective Repository Date:2018-03-22 03/01/2018 JOE Freeman [id number] Primary JOE Lomelioster [place] Insurance:HUMANA BOWENDOB: [place] PPOPolicy [id number] Hospital [address]Hki: (330) Number: Repository [phone] () [id number] Date:0836-64-26LO [address] [address]YZ: 03/01/2018 Secondary NOT GIVENUNK [place] Insurance:SELF PAY [facility] Number: Effective Repository Date:2018-03-01 02/07/2018 JOE Freeman [id number] Primary JOE SALINAS Insurance:HUMANA BOWENDOB: [place] PPOPolicy [id number] Hospital [address]Rgo: (330) Number: Repository [phone] () [id number] Date:2029-08-45NS [place] [address]WP: 02/07/2018 Secondary NOT GIVENUNK [place] Insurance:SELF PAY [facility] Number: Effective Repository Date:2018-01-25 01/26/2018 JOE Freeman [id number] Primary JOE SALINAS Insurance:HUMANA BOWENDOB: [place] PPOPolicy [id number] Hospital [address]Oad: (330) Number: Repository [phone] () [id number] Date:2928-07-19AS [place] [address]WP: 01/26/2018 Secondary NOT GIVENUNK [place] Insurance:SELF PAY [facility] Number: Effective Repository Date:2018-01-26 12/25/2017 JOE Freeman [id number] Primary JOE SALINAS [facility] BOWENDOB: [facility] [id number] Hospital [address]Udc: (330) Number: Repository [phone] () [id number] Date: [address] [address]QA: 12/25/2017 Secondary NOT GIVENUNK [place] Insurance:SELF PAY [facility] Number: Effective Repository Date:2017-12-22 11/24/2017 Joe Freeman [id number] Primary Joe [place] Insurance:HUMANA BowenDOB: [place] PPOPolicy [id number] Hospital [address]Ivm: (330) Number: Repository [phone] () [id number] Date:3187-45-54OB [address] [place] [address]QM: 11/24/2017 Secondary NOT GIVENUNK [place] Insurance:SELF PAY [facility] Number: Effective Repository Date:2017-11-24 09/20/2017 Joe Noland511 Primary Joe [place] Insurance:MISAEL CarrizalesOB: [place] PPOPolicy [id number] Hospital [address]Kfk: (330) Number: Repository [phone] () [id number] Date:[id number] [address] [place] [id number]: 09/20/2017 Secondary NOT GIVENUNK [place] Insurance:SELF PAY [facility] Number: Effective Repository Date:2017-09-20
== END ==
PROVIDERS: Family Provider Family Medicine; PCP Family Medicine; Referring Provider Otolaryngology Otolaryngology/Facial Plastic Surgery; Visit Provider Otolaryngology Otolaryngology/Facial Plastic Surgery
DX: J32.9 Chronic sinusitis, unspecified (principal)
CPT/HCPCS: 70486

== ENCOUNTER → 2018-08-01 08:47 | Outpatient (CLI) | payer OTHER, MEDICARE, SELFPAY ==
--- NOTE | 2018-08-01 11:02 | NEURO ---
NCS and/or EMG Patient Report Ordering Doctor: Randa Javier DATE OF SERVICE: 08/01/18 Luís Duff is a 62-year-old male presents for electrodiagnostic testing of the lower limbs. He reports constant low back pain with radiation into the lower limbs, worse on the left side. Electrodiagnostic findings: Borderline prolonged peroneal motor distal latency bilaterally with normal amplitude and conduction velocity. Normal tibial motor response bilaterally. Borderline prolonged sural latency bilaterally. Superficial peroneal responses are within normal limits. The plantar responses are normal. Borderline prolonged right tibial H reflex. On needle EMG, all muscles tested in the lower limbs showed no evidence of denervation with normal motor unit action potentials. Electrodiagnostic impression: This is a a normal electrodiagnostic study in the lower limbs. There is no electrodiagnostic evidence for peripheral neuropathy or lumbosacral radiculopathy. If there are any further questions, please do not hesitate to contact me.
--- NOTE | 2018-08-01 11:08 | NEURO_ITS ---
NCS and/or EMG Patient Report Ordering Doctor: Randa Javier DATE OF SERVICE: 08/01/18 Luís Duff is a 62-year-old male presents for electrodiagnostic testing of the lower limbs. He reports constant low back pain with radiation into the lower limbs, worse on the left side. Electrodiagnostic findings: Borderline prolonged peroneal motor distal latency bilaterally with normal amplitude and conduction velocity. Normal tibial motor response bilaterally. Borderline prolonged sural latency bilaterally. Superficial peroneal responses are within normal limits. The plantar responses are normal. Borderline prolonged right tibial H reflex. On needle EMG, all muscles tested in the lower limbs showed no evidence of d enervation with normal motor unit action potentials. Electrodiagnostic impression: This is a a normal electrodiagnostic study in the lower limbs. There is no electrodiagnostic evidence for peripheral neuropathy or lumbosacral radiculopathy. If there are any further questions, please do not hesitate to contact me.
== END ==
PROVIDERS: Family Provider Family Medicine; PCP Family Medicine; Referring Provider Orthopaedic Surgery; Visit Provider Orthopaedic Surgery
DX: S33.5XXA Sprain of ligaments of lumbar spine, initial encounter (principal)
CPT/HCPCS: 95886; 95913

== ENCOUNTER → 2018-11-23 08:15 | Outpatient (CLI) | payer MEDICARE, SELFPAY ==
[2018-11-23 12:25] LABS: Hemoglobin A1c 5.7 % (4.2-6.3)
[2018-11-23 12:27] LABS: Vitamin D,25 Hydroxy 37.5 ng/mL (29.95-100.01)
[2018-11-23 12:29] LABS: ALB/GLOB Ratio 1.1 RATIO (0.9-2.4); AST(SGOT) 20 U/L (15-37); Alanine Aminotransfer ALT/SGPT 39 U/L (16-61); Albumin, Serum 4.1 g/dL (3.2-5.0); Alkaline Phosphatase 48 U/L (45-117); Anion Gap 9 (5-15); BUN 27 mg/dL (7-18); BUN/Creat Ratio 24.8 RATIO (10-20); Calcium,Total 9.8 mg/dL (8.5-10.1); Chloride 109 mmol/L (98-107); Cholesterol 278 mg/dL (200); Creatinine, Serum 1.09 mg/dL (0.70-1.30); EST Glomerular Filtration Rate 73 mL/min (>60); Est Glom Filt Rate - Afr Amer 88 mL/min (>60); Globulin 3.7 g/dL (2.2-4.2); Glucose 109 mg/dL (74-106); High Density Lipoprotein 30 mg/dL; Potassium 4.5 mmol/L (3.5-5.1); Protein, Total 7.8 g/dL (6.4-8.2); Sodium Level 143 mmol/L (136-145); Triglycerides 488 mg/dL
== END ==
PROVIDERS: Family Provider Family Medicine; PCP Family Medicine; Visit Provider Internal Medicine Endocrinology, Diabetes & Metabolism
DX: E78.1 Pure hyperglyceridemia (principal); R73.03 Prediabetes; E55.9 Vitamin D deficiency, unspecified
CPT/HCPCS: 36415; 80053; 80061; 82306; 83036

== ENCOUNTER → 2019-03-11 08:48 | Outpatient (CLI) | payer MEDICARE, SELFPAY ==
[2019-03-11 12:58] LABS: ALB/GLOB Ratio 1.1 RATIO (0.9-2.4); AST(SGOT) 33 U/L (15-37); Alanine Aminotransfer ALT/SGPT 46 U/L (16-61); Albumin, Serum 3.9 g/dL (3.2-5.0); Alkaline Phosphatase 46 U/L (45-117); Anion Gap 6 (5-15); BUN 20 mg/dL (7-18); BUN/Creat Ratio 17.1 RATIO (10-20); Calcium,Total 9.3 mg/dL (8.5-10.1); Chloride 109 mmol/L (98-107); Cholesterol 258 mg/dL (200); Creatinine, Serum 1.17 mg/dL (0.70-1.30); EST Glomerular Filtration Rate 67 mL/min (>60); Est Glom Filt Rate - Afr Amer 81 mL/min (>60); Globulin 3.5 g/dL (2.2-4.2); Glucose 91 mg/dL (74-106); High Density Lipoprotein 29 mg/dL; Potassium 4.2 mmol/L (3.5-5.1); Protein, Total 7.4 g/dL (6.4-8.2); Sodium Level 140 mmol/L (136-145); Thyroid Stim Hormone (TSH) 1.01 uIU/mL (0.358-3.74); Triglycerides 390 mg/dL; Very Low Density Lipoprotein 78 mg/dL (5-40)
== END ==
PROVIDERS: Family Provider Family Medicine; PCP Family Medicine; Visit Provider Internal Medicine Endocrinology, Diabetes & Metabolism
DX: E78.1 Pure hyperglyceridemia (principal)
CPT/HCPCS: 36415; 80053; 80061; 84443

== ENCOUNTER → 2020-01-20 08:35 | Outpatient (CLI) | payer MEDICARE, SELFPAY ==
[2020-01-20 13:09] LABS: AST(SGOT) 22 U/L (15-37); Alanine Aminotransfer ALT/SGPT 48 U/L (16-61); Albumin, Serum 4.1 g/dL (3.2-5.0); Alkaline Phosphatase 56 U/L (45-117); Bilirubin, Direct < 0.05 mg/dL (0.00-0.30); Cholesterol 223 mg/dL (200); Globulin 3.9 g/dL (2.2-4.2); High Density Lipoprotein 23 mg/dL; Triglycerides 859 mg/dL
== END ==
PROVIDERS: PCP Family Medicine; Visit Provider Internal Medicine Endocrinology, Diabetes & Metabolism
DX: E78.2 Mixed hyperlipidemia (principal)
CPT/HCPCS: 36415; 80061; 80076

== ENCOUNTER → 2020-07-13 08:00 | Outpatient (CLI) | payer MEDICARE, SELFPAY ==
[2020-07-13 12:42] LABS: Hemoglobin A1c 5.4 % (3.8-5.6)
[2020-07-13 12:53] LABS: Cholesterol 186 mg/dL (200); High Density Lipoprotein 28 mg/dL; Triglycerides 850 mg/dL
== END ==
PROVIDERS: PCP Family Medicine; Visit Provider Internal Medicine Endocrinology, Diabetes & Metabolism
DX: E78.2 Mixed hyperlipidemia (principal); R73.09 Other abnormal glucose
CPT/HCPCS: 36415; 80061; 83036

== ENCOUNTER 2020-11-30 08:02 | Day surgery (SDC) | payer MEDICARE, SELFPAY ==
[2020-11-25 13:33] VITALS: BMI 23.2
[2020-11-30] VITALS (7 sets, daily range): BP systolic 132–180; BP diastolic 84–99; PULSE 51–666; RESP 14–18; TEMP 35.9–36.5; O2SAT 97–100; BMI 21.0
--- NOTE | 2020-11-30 | GASB_PTH ---
PATIENT: JOE NOLAND LOC: EN U#:[id number] AGE/SX: 65/M ROOM: RE11/30/[address]: Dr. Yuliet Cheek MD : 1955 BED: DIS: 11/30/2020 SPEC #: [id number] RECD: 11/30/20 11:30 STATUS: MARYANN RJ #: [id number] ANANT: 11/30/20 00:[address]: Yuliet Cheek DEPT: SURGICAL PATHOLOGY RECD BY: Tono Workman ENTERED: 11/30/20 11:31 SP TYPE: Gastric Bx OTHR DR: Dr. Edward Villa MD Tissues: A - Gastric mucous membrane B - Transverse colon C - Rectum, NOS Procedures: Surgery Specimen Level IV HEADER OPERATION: Colonoscopy, EGD ([facility]) PRE-OP DIAGNOSIS: Positive colorectal cancer screening ([facility]) TISSUE SUBMITTED: A - Antrum biopsy for H. pylori and path, B - Transverse colon polyp, hot snare, C - Rectal polyp, hot snare MICROSCOPIC DIAGNOSIS A. Gastric antrum, biopsy: Mild chronic inflammation. See comment. B. Transverse colon polyp, biopsy: Tubular adenoma. C. Rectal polyp, biopsy: Fragments of tubular adenoma. AM:mike 12/01/2020 COMMENT A. The results of immunohistochemistry for Helicobacter pylori will be reported separately ([id number]). MICROSCOPIC DESCRIPTION Slides are reviewed. GROSS DESCRIPTION A - Received in fixative is one container labeled with the patient's name and designated antrum biopsy. The specimen consists of one irregular fragment of light oakes soft tissue that measures 0.3 x 0.2 x 0.1 cm. The specimen is totally submitted in one cassette. B - Received in fixative is one container labeled with the patient's name and designated transverse colon polyp. The specimen consists of one irregular fragment of light oakes soft tissue that measures 0.3 x 0.3 x 0.1 cm. The specimen is totally submitted in one cassette. C - Received in fixative is one container labeled with the patient's name and designated rectal polyp. The specimen consists of multiple irregular fragments of light oakes soft tissue that in aggregate measure 0.6 x 0.2 x 0.1 cm. The specimen is totally submitted in one cassette. / LENORA:mike 11/30/20 TC:5 CPT: 27178 x3
[2020-11-30] MEDS: Lactated Ringers 1,000 ML 100 ML IV (08:45)
--- NOTE | 2020-11-30 09:03 | PCM.HP.BLA ---
History and Physical Date of Admission: 11/30/20 Date of Service: 11/25/20 MR#:[id number] Acct:[id number] Name: JOE NOLAND :1955 Age/Sex: 65/M Rep #:[id number] Provider:Dr. Yuliet Cheek MD Location:[facility] Status:Signed Intake Vital Signs 11/25/20 13:33 BMI 23.2 Intake Visit Reasons: Positive Cologuard Chief Complaint: Hypertriglyceridemia Allergies pseudoephedrine [From Sudafed] Allergy (Mild, Verified 11/25/20 13:32) Other duloxetine [From Cymbalta] Allergy (Verified 07/24/20 10:29) anxiety Medications enoxaparin 300 mg/3 mL subcutaneous solution 60 mg SC Q12H 05/01/18 [History Confirmed 11/25/20] pregabalin 25 mg capsule 25 mg PO BID 07/26/19 [History Confirmed 11/25/20] fenofibrate micronized 134 mg capsule 134 mg PO DAILY #90 cap 07/24/20 [Rx Confirmed 11/25/20] rosuvastatin 5 mg tablet 5 mg PO DAILY #30 tab 07/24/20 [Rx Confirmed 11/25/20] icosapent ethyl 1 gram capsule 2 g PO BID #120 cap 08/14/20 [Rx Confirmed 11/25/20] doxepin 25 mg capsule 25 mg PO DAILY 11/25/20 [History Confirmed 11/25/20] oxycodone-acetaminophen 5 mg-325 mg tablet 1 tab PO BID PRN tab 11/25/20 [History Confirmed 11/25/20] PFSH Medical History (Updated 11/25/20 @ 13:[address] Yuliet Cheek MD) Blood clotting disorder History of trauma Mixed hyperlipidemia Surgical History (Updated 11/25/20 @ 13:31 by Rossy Chen) h/o back surgery H/O hand surgery S/P cataract extraction S/P tonsillectomy S/P vasectomy Family History (Updated 11/25/20 @ 13:31 by Rossy Chen) Unknown Diabetes CAD (coronary artery disease) Hypertension Social History (Updated 11/25/20 @ 13:31 by Rossy Chen) Smoking Status: Never smoker alcohol intake: never HPI HPI HPI: JOE NOLAND, is a 65 M who presents to the office today for positive Cologuard for colonoscopy/EGD. Patient states his last colonoscopy was in 2009 he thinks it was by Dr. Combs states it was negative per patient. Since I work accident in 2008 patient had gotten 8 DVTs currently on therapeutic Lovenox. Patient is only able to hold the Lovenox the night before and morning of. Patient's never had a previous EGD denies any family history of colon cancer. Patient recently had left hand surgery in [place] due to an accident. Patient states he has bowel movements daily denies any blood. Patient denies any chronic abdominal pain/nausea/vomiting/reflux. ROS General General: No weight change, appetite, fatigue, colon cancer, breast cancer or weakness HEENT HEENT: Yes eye injury and eye surgery; No difficulty swallowing, swollen glands or hoarseness Endo Endocrine: No thyroid disease, diabetes mellitus, thyroid cancer, Hair loss, heat intolerance or cold intolerance Skin Skin: No rash or changing moles Breast Breast: No left breast lump, right breast lump, nipple discharge, breast pain, abnormal mammogram, abnormal US or breast enlargement Musc Musculoskeletal: Yes back problems and arthritis; No rheumatoid arthritis, gout or joint pain Cardio Cardiovascular: No murmur, pacemaker, heart disease, atrial fibrillation, high blood pressure, heart attack, heart stent, palpitations, shortness of breat with exertion or chest pain Psych Psychiatric: Yes anxiety; No depression or hearing voices Resp Respiratory: No shortness of breath, No sleep apnea, No cough, No COPD, No asthma, No emphysema and No wheezing Gastro Gastrointestinal: No abdominal pain, No nausea or vomiting, No diarrhea, No constipation, No blood in stool, No acid reflux, No hemorrhoids, No ulcers, No gallbladder problem and No black,tarry stools Neo Hematologic: No blood thinners, Yes blood disorders, No bleeding, No anemia and Yes blood clots Neuro Neurologic: No system reviewed and no additional complaints, except as documented, No as per HPI, No abnormal gait, No abnormal hearing, No abnormal movements, No abnormal speech, No behavioral changes, No burning sensations, No confusion, No convulsions, No disequilibrium, No dizziness, No localized weakness, No frequent falls, No headache(s), No lack of coordination, No loss of vision, No memory loss, No numbness, No other visual disturbances, No radicular pain, No restless legs, No sensory deficit, No syncope, No tingling, No tremor(s), No weakness and No other COVID (Procedure Consent) Procedure Criteria Procedure Criteria: Yes Elective The surgeon/proceduralist and patient have discussed in detail the risk of exposure to and/or potential harm posed by the COVID-19 virus with having a surgery/procedure at this time versus the risk of delaying the surgery/procedure. It is not possible to know either the risk of delaying the surgery or procedure or chance of getting an infection with perfect accuracy, but a joint decision was made between the patient and the surgeon/proceduralist to proceed at this time with the scheduled surgery/procedure as indicated on the consent form. Assessment and Plan Assessment and Plan (1) Positive colorectal cancer screening using Cologuard test: Status: Acute (2) Blood clotting disorder: Status: Chronic Plan - Dr. Yuliet Cheek MD: Patient is currently on therapeutic Lovenox twice daily he will hold his dose the night before and morning. I have discussed the above with the patient. I have offered the patient EGD and colonoscopy for evaluation. Scheduled for 11/30 per patient request I have explained the risks/benefits of the procedure and described the procedure. I have discussed the risks with the patient, including but not limited to: infection, bleeding, perforation of the GI tract requiring emergency surgery, inability to complete the procedure, injury to any internal organs, complications of anesthesia, etc. - the patient understands and agrees to proceed. I have answered all the patient's questions to the patient's satisfaction and the patient has no further questions. The patient has been given instructions for the colon cleansing preparation. 1 day clears, MiraLAX Dulcolax split prep Yuliet Cheek M.D. Pager: [phone] [facility] [address] [place] [address], [facility], [address] [place] [address] Office: [phone] Plan Details Other Orders: Orders: Colonoscopy Today EGD Today Coding Level of Care Code Off vis,new,level 3 Diagnoses Positive colorectal cancer screening using Cologuard test R19.5 Blood clotting disorder D68.9 11/25/20 1350<Electronically signed by Yuliet Cheek MD>Date [facility] MD
--- NOTE | 2020-11-30 09:15 | IMM_PTH ---
PATIENT: JOE NOLAND LOC: EN U#:[id number] AGE/SX: 65/M ROOM: RE11/30/[address]: Dr. Yuliet Cheek MD : 1955 BED: DIS: 11/30/2020 SPEC #: [id number] RECD: 11/30/20 12:23 STATUS: MARYANN REQ #: [id number] ANANT: 11/30/20 09:[address]: Yuliet Cheek DEPT: IMMUNOHISTOCHEMISTRY RECD BY: Carly Elena ENTERED: 11/30/20 12:24 SP TYPE: IMMUNO OTHR DR: Dr. Edward Villa MD Tissues: A - Stomach, NOS Procedures: H Pylori (initial) PHYSICIAN & INSTITUTION [place] [id number] SPECIMEN INFORMATION: Tissue Source: A ? Antrum biopsy Clinical Info: Positive colorectal screening (Cologuard) Specimen Number: [id number] CPT code: 05022 METHODOLOGY: Deparaffinized sections of prefer/formalin-fixed tissue or PAP/DQ stained slides are incubated with monoclonal/polyclonal antibodies/oligonucleotide probes. Localization is made via biotin free immunoperoxidase method. Appropriate controls are performed and reacted as expected. Results on target cell population are indicated in the following table: RESULTS: ANTIBODY / CLONE RESULT Block A H Pylori (polyclonal) negative These tests were developed and their performance characteristics determined by [facility]. They may not have been cleared or approved by the U.S. Food and Drug Administration. The FDA has determined that such clearance or approval is not necessary. INTERPRETATION: A. Antrum biopsy: Negative for Helicobacter pylori organisms. AM:mike 12/01/2020
--- NOTE | 2020-11-30 09:51 | OP.EGD_ITS ---
Patient Name: Luís Duff Procedure Date: 11/30/2020 9:10 AM Date of : 1955 Age: 65 Procedure: Upper GI endoscopy Indications: +cologuard Providers: Yuliet Cheek MD Referring MD: Yuliet Cheek MD Medicines: Monitored Anesthesia Care Patient Profile: This is a 65 year old male. Complications: No immediate complications. Procedure: Pre-Anesthesia Assessment: - Prior to the procedure, a History and Physical was performed, and patient medications and allergies were reviewed. The patient's tolerance of previous anesthesia was also reviewed. The risks and benefits of the procedure and the sedation options and risks were discussed with the patient. All questions were answered, and informed consent was obtained. Prior Anticoagulants: The patient has taken Lovenox (enoxaparin), last dose was 1 day prior to procedure. ASA Grade Assessment: Per anesthesia. After reviewing the risks and benefits, the patient was deemed in satisfactory condition to undergo the procedure. After obtaining informed consent, the endoscope was passed under direct vision. Throughout the procedure, the patient's blood pressure, pulse, and oxygen saturations were monitored continuously. The gastroscope was introduced through the mouth, and advanced to the second part of duodenum. The upper GI endoscopy was accomplished without difficulty. The patient tolerated the procedure well. Scope In: 9:24:48 AM Scope Out: 9:29:46 AM Total Procedure Duration Time 0 hours 4 minutes 58 seconds Findings: The Z-line was variable and was found 40 cm from the incisors. Inflammation characterized by erythema was found in the gastric antrum and in the prepyloric region of the stomach. Biopsies were taken with a cold forceps for histology. Biopsies were taken with a cold forceps for Helicobacter pylori cultures. Mildly erythematous mucosa without active bleeding and with no stigmata of bleeding was found in the duodenal bulb. The first portion of the duodenum and second portion of the duodenum were normal. The cardia and gastric fundus were normal on retroflexion. Impression: - Z-line variable, 40 cm from the incisors. - Gastritis. Biopsied. - Erythematous duodenopathy. - Normal first portion of the duodenum and second portion of the duodenum. Recommendation: - Await pathology results. - Discharge patient to home. - Resume previous diet. - Continue present medications. - Resume Lovenox (enoxaparin) at prior dose today. - Use Protonix (pantoprazole) 40 mg PO daily. Procedure Code(s): --- Professional --- 47895, Esophagogastroduodenoscopy, flexible, transoral; with biopsy, single or multiple Diagnosis Code(s): --- Professional --- K22.8, Other specified diseases of esophagus K29.70, Gastritis, unspecified, without bleeding K31.89, Other diseases of stomach and duodenum CPT copyright 2017 [employer]. All rights reserved. The codes documented in this report are preliminary and upon geospatial intelligence analyst review may be revised to meet current compliance requirements. MD Yuliet Ruiz MD 11/30/2020 9:51:22 AM This report has been signed electronically. Number of Addenda: 0 Note Initiated On: 11/30/2020 9:10 AM
--- NOTE | 2020-11-30 09:51 | OP.CCLET_ITS ---
11/30/2020 Edward Villa Re : Upper GI endoscopy procedure for Luís Rea Allen This procedure was performed on Monday, November 30, 2020. My impressions and recommendations are as follows: Impressions : - Z-line variable, 40 cm from the incisors. - Gastritis. Biopsied. - Erythematous duodenopathy. - Normal first portion of the duodenum and second portion of the duodenum. Recommendations : - Await pathology results. - Discharge patient to home. - Resume previous diet. - Continue present medications. - Resume Lovenox (enoxaparin) at prior dose today. - Use Protonix (pantoprazole) 40 mg PO daily. My findings are described in the full procedure note, which is enclosed. If I can be of further assistance, please feel free to contact me at Doctor phone number(s): , Work: . Sincerely, MD Yuilet Ruiz MD 11/30/2020 9:51:22 AM This report has been signed electronically.
--- NOTE | 2020-11-30 09:56 | OP.CCLET_ITS ---
11/30/2020 Edward Villa Re : Colonoscopy procedure for Luís Rea Allen This procedure was performed on Monday, November 30, 2020. My impressions and recommendations are as follows: Impressions : - Two less than 5 mm polyps in the rectum and in the transverse colon, removed with a hot snare. Resected and retrieved. - The examination was otherwise normal on direct and retroflexion views. Recommendations : - Discharge patient to home. - High fiber diet [Duration]. - Continue present medications. - Resume Lovenox (enoxaparin) at prior dose today. - Await pathology results. - Repeat colonoscopy in 5 years for surveillance based on pathology results. My findings are described in the full procedure note, which is enclosed. If I can be of further assistance, please feel free to contact me at Doctor phone number(s): , Work: . Sincerely, MD Yuliet Ruiz MD 11/30/2020 9:55:32 AM This report has been signed electronically.
--- NOTE | 2020-11-30 09:56 | OP.COLON_ITS ---
Patient Name: Luís Duff Procedure Date: 11/30/2020 9:31 AM Date of : 1955 Age: 65 Procedure: Colonoscopy Indications: Positive Cologuard test Providers: Yuliet Cheek MD Referring MD: Yuliet Cheek MD Medicines: Monitored Anesthesia Care Patient Profile: This is a 65 year old male. Last Colonoscopy: 2011. Complications: No immediate complications. Procedure: Pre-Anesthesia Assessment: - Prior to the procedure, a History and Physical was performed, and patient medications and allergies were reviewed. The patient's tolerance of previous anesthesia was also reviewed. The risks and benefits of the procedure and the sedation options and risks were discussed with the patient. All questions were answered, and informed consent was obtained. Prior Anticoagulants: The patient has taken Lovenox (enoxaparin), last dose was 1 day prior to procedure. ASA Grade Assessment: Per anesthesia. After reviewing the risks and benefits, the patient was deemed in satisfactory condition to undergo the procedure. After I obtained informed consent, the scope was passed under direct vision. Throughout the procedure, the patient's blood pressure, pulse, and oxygen saturations were monitored continuously. The Colonoscope was introduced through the anus and advanced to the cecum, identified by the ileocecal valve. The colonoscopy was performed without difficulty. The patient tolerated the procedure well. The quality of the bowel preparation was good. Scope In: 9:32:47 AM Scope Withdrawal Time 0 hours 8 minutes 28 seconds Scope Out: 9:46:29 AM Total Procedure Duration Time 0 hours 13 minutes 42 seconds Findings: The perianal and digital rectal examinations were normal. Two semi-sessile polyps were found in the rectum and transverse colon. The polyps were less than 5 mm in size. These polyps were removed with a hot snare. Resection and retrieval were complete. The exam was otherwise without abnormality on direct and retroflexion views. A few small-mouthed diverticula were found in the sigmoid colon. Impression: - Two less than 5 mm polyps in the rectum and in the transverse colon, removed with a hot snare. Resected and retrieved. - The examination was otherwise normal on direct and retroflexion views. Recommendation: - Discharge patient to home. - High fiber diet [Duration]. - Continue present medications. - Resume Lovenox (enoxaparin) at prior dose today. - Await pathology results. - Repeat colonoscopy in 5 years for surveillance based on pathology results. Procedure Code(s): --- Professional --- 54835, Colonoscopy, flexible; with removal of tumor(s), polyp(s), or other lesion(s) by snare technique Diagnosis Code(s): --- Professional --- K62.1, Rectal polyp D12.3, Benign neoplasm of transverse colon (hepatic flexure or splenic flexure) R19.5, Other fecal abnormalities CPT copyright 2017 [employer]. All rights reserved. The codes documented in this report are preliminary and upon esthetics instructor review may be revised to meet current compliance requirements. MD Yuliet Ruiz MD 11/30/2020 9:55:32 AM This report has been signed electronically. Number of Addenda: 0 Note Initiated On: 11/30/2020 9:31 AM
== END 2020-11-30 10:42 | disposition home or self-care (01) ==
LOC: EN 08:03 → AC 08:04
PROVIDERS: PCP Family Medicine; Referring Provider Surgery; Visit Provider Surgery
PROC: 0DJD8ZZ Inspection of Lower Intestinal Tract, Via Natural or Artificial Opening Endoscopic (ICD-10-PCS; CPT 45378; principal; 2020-11-30 09:10)
DX: Z12.11 Encounter for screening for malignant neoplasm of colon (principal); K22.8 Other specified diseases of esophagus; K29.70 Gastritis, unspecified, without bleeding; K31.89 Other diseases of stomach and duodenum; K62.1 Rectal polyp; D12.3 Benign neoplasm of transverse colon; R19.5 Other fecal abnormalities; E78.2 Mixed hyperlipidemia; Z86.718 Personal history of other venous thrombosis and embolism
CPT/HCPCS: 43239; 45385; 87426; 88305; 88342; C9803; J7120; J2405

== ENCOUNTER → 2021-03-18 08:30 | Outpatient (CLI) | payer MEDICARE, SELFPAY ==
[2021-03-18 12:52] LABS: ALB/GLOB Ratio 1.2 RATIO (0.9-2.4); AST(SGOT) 39 U/L (15-37); Alanine Aminotransfer ALT/SGPT 72 U/L (16-61); Albumin, Serum 4.3 g/dL (3.2-5.0); Alkaline Phosphatase 34 U/L (45-117); Anion Gap 6 (5-15); BUN 34 mg/dL (7-18); BUN/Creat Ratio 24.5 RATIO (10-20); Calcium,Total 10.2 mg/dL (8.5-10.1); Chloride 107 mmol/L (98-107); Cholesterol 218 mg/dL (200); Creatinine, Serum 1.39 mg/dL (0.70-1.30); EST Glomerular Filtration Rate 55 mL/min (>60); Est Glom Filt Rate - Afr Amer 66 mL/min (>60); Globulin 3.7 g/dL (2.2-4.2); Glucose 127 mg/dL (74-106); High Density Lipoprotein 22 mg/dL; Potassium 4.8 mmol/L (3.5-5.1); Sodium Level 139 mmol/L (136-145); Triglycerides 981 mg/dL
== END ==
PROVIDERS: PCP Family Medicine; Referring Provider Nurse Practitioner Family; Visit Provider Nurse Practitioner Family
DX: E78.2 Mixed hyperlipidemia (principal)
CPT/HCPCS: 36415; 80053; 80061

== ENCOUNTER 2021-09-15 08:12 | Outpatient (CLI) | payer MEDICARE, SELFPAY ==
[2021-09-15 12:48] LABS: Hemoglobin A1c 5.6 % (3.8-5.6)
[2021-09-15 13:00] LABS: ALB/GLOB Ratio 1.4 RATIO (0.9-2.4); AST(SGOT) 27 U/L (15-37); Alanine Aminotransfer ALT/SGPT 55 U/L (16-61); Albumin, Serum 4.4 g/dL (3.2-5.0); Alkaline Phosphatase 28 U/L (45-117); Anion Gap 5 (5-15); BUN 32 mg/dL (7-18); BUN/Creat Ratio 25.2 RATIO (10-20); Calcium,Total 10.2 mg/dL (8.5-10.1); Chloride 112 mmol/L (98-107); Cholesterol 208 mg/dL (200); Creatinine, Serum 1.27 mg/dL (0.70-1.30); EST Glomerular Filtration Rate 61 mL/min (>60); Est Glom Filt Rate - Afr Amer 73 mL/min (>60); Globulin 3.2 g/dL (2.2-4.2); Glucose 110 mg/dL (74-106); High Density Lipoprotein 25 mg/dL; Potassium 4.4 mmol/L (3.5-5.1); Protein, Total 7.6 g/dL (6.4-8.2); Sodium Level 141 mmol/L (136-145); Thyroid Stim Hormone (TSH) 1.49 uIU/mL (0.358-3.74); Triglycerides 335 mg/dL; Very Low Density Lipoprotein 67 mg/dL (5-40)
== END 2021-09-15 23:59 | disposition home or self-care (01) ==
LOC: BIMLAB 08:13
PROVIDERS: PCP Family Medicine; Referring Provider Internal Medicine Endocrinology, Diabetes & Metabolism; Visit Provider Internal Medicine Endocrinology, Diabetes & Metabolism
DX: E78.2 Mixed hyperlipidemia (principal); R73.9 Hyperglycemia, unspecified
CPT/HCPCS: 36415; 80053; 80061; 83036; 84443

== ENCOUNTER → 2022-05-13 | Outpatient (CLI) | payer MEDICARE, SELFPAY | END | disposition home or self-care (01) | LOC: BFHLAB 13:27 → LABSPEC 13:29 | PROVIDERS: PCP Family Medicine; Visit Provider Family Medicine | DX: Z20.828 Contact with and (suspected) exposure to other viral communicable diseases (principal); Z20.818 Contact with and (suspected) exposure to other bacterial communicable diseases | CPT/HCPCS: 87635; U0003; U0005 ==

== ENCOUNTER → 2022-05-16 | Outpatient (CLI) | payer MEDICARE, SELFPAY ==
[2022-05-16 13:09] LABS: AST(SGOT) 34 U/L (15-37); Alanine Aminotransfer ALT/SGPT 67 U/L (16-61); Albumin, Serum 3.8 g/dL (3.2-5.0); Alkaline Phosphatase 27 U/L (45-117); Anion Gap 7 (5-15); BUN 25 mg/dL (7-18); BUN/Creat Ratio 21.2 RATIO (10-20); Chloride 108 mmol/L (98-107); Cholesterol 191 mg/dL (200); Creatinine, Serum 1.18 mg/dL (0.70-1.30); EST Glomerular Filtration Rate 66 mL/min (>60); Est Glom Filt Rate - Afr Amer 80 mL/min (>60); Globulin 3.8 g/dL (2.2-4.2); Glucose 109 mg/dL (74-106); High Density Lipoprotein 22 mg/dL; Potassium 4.4 mmol/L (3.5-5.1); Protein, Total 7.6 g/dL (6.4-8.2); Sodium Level 139 mmol/L (136-145); Triglycerides 517 mg/dL
[2022-05-16 13:36] LABS: Hemoglobin A1c 5.6 % (3.8-5.6)
== END | disposition home or self-care (01) ==
LOC: BIMLAB 10:36
PROVIDERS: PCP Family Medicine; Referring Provider Internal Medicine Endocrinology, Diabetes & Metabolism; Visit Provider Internal Medicine Endocrinology, Diabetes & Metabolism
DX: E78.2 Mixed hyperlipidemia (principal); R73.01 Impaired fasting glucose
CPT/HCPCS: 36415; 80053; 80061; 83036

== ENCOUNTER → 2022-11-02 | Outpatient (CLI) | payer MEDICARE, SELFPAY ==
[2022-11-02 12:55] LABS: Absolute Lymphocyte Count 1.21 X10^3/uL (0.83-4.51); Absolute Neutrophil Count 2.8 X10^3/uL (2.0-7.7); Basophil# 0.03 X10^3/uL; Basophil% 0.7 % (0-1); Eosinophil# 0.05 X10^3/uL; Eosinophils% 1.1 % (0-5); Hematocrit 44.7 % (40-54); Hemoglobin 14.4 g/dL (13.0-16.5); Lymphocyte # 1.21 X10^3/ul (0.83-4.51); Lymphocyte % 26.7 % (19-41); Mean Corp Hgb Conc 32.2 g/dL (32-36); Mean Corpuscular Volume 96.3 fL (80-94); Mean Platelet Vol. 9.9 fl (6.2-12.0); Monocyte# 0.41 X10^3/uL; Monocyte% 9.1 % (0-10); NRBC Flagged by Analyzer 0 % (0-5); Neutrophil # 2.77 X10^3/uL (2.7-7.7); Neutrophil % 61.1 % (47-70); Platelet Count 259 K/mm3 (150-450); RBC Distribution Width CV 13.5 % (11.6-14.6); RBC Distribution Width SD 47.8 fl (35.1-43.9); Red Blood Count 4.64 M/mm3 (4.6-6.2); White Blood Count 4.5 K/mm3 (4.4-11.0)
[2022-11-02 13:37] LABS: PSA,Total - Annual Screen 7.37 ng/mL (0.00-4.00)
== END | disposition home or self-care (01) ==
LOC: BFHLAB 09:25
PROVIDERS: PCP Family Medicine; Referring Provider Family Medicine; Visit Provider Family Medicine
DX: Z12.5 Encounter for screening for malignant neoplasm of prostate (principal); Z51.81 Encounter for therapeutic drug level monitoring
CPT/HCPCS: 36415; 84153; 85025; G0103

== ENCOUNTER → 2023-07-25 | Outpatient (CLI) | payer MEDICARE, SELFPAY ==
--- OUTSIDE RECORDS SUMMARY | 2023-07-25 09:23 | XMS RPT_ITS | CCD ---
Author Name Unknown Address [address] [place] [address] Organization [facility] Care Team Providers Care Self Storage Manager Name Role Phone Mei HAYES, Parvez Sepulveda Unavailable Yashira Veliz Unavailable Unavailable Rocio Smith Unavailable Yumiko Christian Unavailable Unavailable Nancy PENNINGTON, Maryjane Mcdowell Unavailable [phone] ADITI Piña, Kristen Lott Unavailable Unavailabl e Parvez Hurley MD Unavailable [phone] Yashira Veliz Unavailable Unavailable Allergies Allergy Classification Reported Allergen(s) Allergy Type Date of Onset Reaction(s) Facility (9 sources) warfarin drug allergy 10-31-2016 nausea [facility] Work Phone: Medications Completed/Discontinued Medications Medication Drug Class(es) Dates Sig (Normalized) Sig (Original) OXYCODONE-ACETAMINO PHEN (9 sources) Opioid Agonist Start: 10-31-2016 PERCOCET 10-325 MG TABS As needed as directed OXYCODONE-ACETAMINOP HEN [id number] Kristen Piña RN Problems Active Problems Problem Classification Problem Date Documented Date Episodic/Chronic Coagulation and hemorrhagic disorders (9 sources) Hypercoagulability state; Translations: [Other primary thrombophilia] Onset: 7 10-31-2016 Chronic Disorders of lipid metabolism (9 sources) Hyperlipidemia; Translations: [Hyperlipidemia, unspecified] Onset: 7 10-31-2016 Chronic Essential hypertension (9 sources) Hypertensive disorder; Translations: [Essential (primary) hypertension] Onset: 7 10-31-2016 Chronic Unclassified (3 sources) Long-term drug therapy; Translations: [Other assistant terminal manager (current) drug therapy] Onset: 10-31-2016 Past or Other Problems Problem Classification Problem Date Documented Da te Episodic/Chronic Other aftercare (6 sources) Other usp (current) drug therapy; Translations: [Other assistant terminal manager (current) drug therapy] Onset: 10-31-2016 10-31-2016 Episodic Other screening for suspected conditions (not mental disorders or infectious disease) (9 sources) Echocardiogram abnormal; Translations: [Abnormal findings on diagnostic imaging of heart and coronary circulation] Onset: 10-31-2016 10-31-2016 Episodic Phlebitis; thrombophlebitis and thromboembolism (9 sources) H/O: Deep vein thrombosis; Translations: [Personal history of other venous thrombosis and embolism] Onset: 10-31-2016 10-31-2016 Episodic Results Test Name Value Interpretation Reference Range Facil ity Vital Signs Date Time Vital Sign Value Performing Clinician Patricia narayan 11-02-2016 12:23-0400 Heart rate 53 /min Yashiraibrahima [facility] Work Phone: 11-02-2016 12:06-0400 BMI (Body Mass Index) 21.66 kg/m2 [facility]ira[facility]rah[facility] Work Phone: 11-02-2016 12:06-0400 Body weight 68.49 kg Yashiraibrahima [facility] Work Phone: 11-02-2016 12:06-0400 BP Diastolic 90 mm[Hg] Yashira Keren [facility] Work Phone: 11-02-2016 12:06-0400 BP Systolic 144 mm[Hg] Yashira Keren [facility] Work Phone: 11-02-2016 12:06-0400 Height 177.8 cm Yashiraibrahima [facility] Work Phone: 11-02-2016 12:06-0400 Pulse (Heart Rate) 60 /min Yashiraibrahima [facility] Work Phone: 11-02-2016 12:06-0400 Respiratory Rate 16 /min Yashiraibrahima [facility] Work Phone: 11-02-2016 12:06-0400 Weight 68.49 kg Yashira Marthey [facility] Work Phone: Procedures Date Procedure Procedure Detail Performing Clinician Start: 11-02-2016 End: 11-02-2016 Documentation of current medications Yashira Veliz Start: 11-02-2016 End: 11-02-2016 *BMP Parvez Hurley MD Start: 11-02-2016 End: 11-02-2016 *CBC with Differential Parvez Hurley MD Start: 11-02-2016 End: 11-02-2016 Follow Up Appt 6 weeks Parvez Hurley MD Start: 11-02-2016 End: 11-02-2016 MMM Parvez Hurley MD Start: 11-02-2016 End: 11-28-2016 Transesophageal echocardiogram ([facility]) Parvez Hurley MD Plan of Treatment Date Care Activity Detail Author Start: 12-19-2016 End: 12-19-2016 Appointment Appointment [facility] Work Phone: Start: 12-19-2016 End: 12-19-2016 Appointment Appointment [facility] Work Phone: Start: 11-02-2016 End: 11-02-2016 Appointment Appointment [facility] Work Phone: Start: 11-02-2016 End: 11-02-2016 Appointment Appointment [facility] Work Phone: Start: 11-02-2016 End: 11-02-2016 *BMP *BMP [facility] Work Phone: Start: 11-02-2016 End: 11-02-2016 *CBC with Differential *CBC with Differential [facility] Work Phone: Start: 11-02-2016 End: 11-02-2016 Follow Up Appt 6 weeks Follow Up Appt 6 weeks [facility] Work Phone: Start: 11-02-2016 End: 11-02-2016 MMM MMM [facility] Work Phone: Start: 11-02-2016 End: 11-02-2016 Transesophageal echocardiogram ([facility]INA) Transesophageal echocardiogram ([facility]INA) [facility] Work Phone: Additional Source Comments FOR RECORDS PERTAINING TO PATIENTS WHO ARE OR HAVE BEEN ENROLLED IN A CHEMICAL DEPENDENCY/SUBSTANCEABUSE PROGRAM, SOME INFORMATION MAY BE OMITTED. This clinical summary was aggregated from multiple sources. Caution should be exercised in using it in the provision of clinical care. This summary normalizes information from multiple sources, and as a consequence, information in this document may materially change the coding, format and clinical context of patient data. In addition, data may be omitted in some cases. CLINICAL DECISIONS SHOULD BE BASED ON THE PRIMARY CLINICAL RECORDS. [facility]. provides no warranty or guarantee of the accuracy or completeness of information in this document.
== END | disposition home or self-care (01) ==
PROVIDERS: PCP Family Medicine; Visit Provider Family Medicine
DX: R97.20 Elevated prostate specific antigen [PSA] (principal)
CPT/HCPCS: 36415; 84153

== ENCOUNTER → 2023-11-06 | Outpatient (CLI) | payer MEDICARE, SELFPAY ==
[2023-11-06 12:55] LABS: Absolute Lymphocyte Count 1.17 X10^3/uL (0.83-4.51); Absolute Neutrophil Count 2.5 X10^3/uL (2.0-7.7); Basophil# 0.05 X10^3/uL; Basophil% 1.2 % (0-1); Eosinophil# 0.06 X10^3/uL; Eosinophils% 1.4 % (0-5); Hematocrit 43.3 % (40-54); Hemoglobin 13.7 g/dL (13.0-16.5); Lymphocyte # 1.17 X10^3/ul (0.83-4.51); Lymphocyte % 28.1 % (19-41); Mean Corp Hgb Conc 31.6 g/dL (32-36); Mean Corpuscular Hgb 31.1 pg (27.0-32.0); Mean Corpuscular Volume 98.4 fL (80-94); Mean Platelet Vol. 9.8 fl (6.2-12.0); Monocyte# 0.35 X10^3/uL; Monocyte% 8.4 % (0-10); NRBC Flagged by Analyzer 0 % (0-5); Neutrophil # 2.48 X10^3/uL (2.7-7.7); Neutrophil % 59.7 % (47-70); Platelet Count 226 K/mm3 (150-450); RBC Distribution Width CV 13.2 % (11.6-14.6); RBC Distribution Width SD 48.5 fl (35.1-43.9); White Blood Count 4.2 K/mm3 (4.4-11.0)
[2023-11-06 13:13] LABS: ALB/GLOB Ratio 1.1 RATIO (0.9-2.4); AST(SGOT) 33 U/L (15-37); Alanine Aminotransfer ALT/SGPT 53 U/L (16-61); Albumin, Serum 3.9 g/dL (3.2-5.0); Alkaline Phosphatase 26 U/L (45-117); Anion Gap 4 (5-15); BUN 31 mg/dL (7-18); BUN/Creat Ratio 25.6 RATIO (10-20); Calcium,Total 10.3 mg/dL (8.5-10.1); Chloride 113 mmol/L (98-107); Cholesterol 199 mg/dL (200); Creatinine, Serum 1.21 mg/dL (0.70-1.30); EST Glomerular Filtration Rate 64 mL/min (>60); Est Glom Filt Rate - Afr Amer 77 mL/min (>60); Globulin 3.7 g/dL (2.2-4.2); Glucose 107 mg/dL (74-106); High Density Lipoprotein 28 mg/dL; Potassium 4.4 mmol/L (3.5-5.1); Protein, Total 7.6 g/dL (6.4-8.2); Sodium Level 142 mmol/L (136-145); Triglycerides 282 mg/dL; Very Low Density Lipoprotein 56 mg/dL (5-40)
[2023-11-06 14:44] LABS: Vitamin D,25 Hydroxy 34.3 ng/mL
== END | disposition home or self-care (01) ==
LOC: BFHLAB 08:57
PROVIDERS: PCP Family Medicine; Referring Provider Family Medicine; Visit Provider Family Medicine
DX: E78.5 Hyperlipidemia, unspecified (principal); R63.4 Abnormal weight loss; E83.52 Hypercalcemia
CPT/HCPCS: 36415; 80053; 80061; 82306; 83970; 85025

== ENCOUNTER → 2024-10-02 | Outpatient (CLI) | payer MEDICARE, SELFPAY ==
--- NOTE | 2024-10-02 15:38 | RAD_ITS ---
PROCEDURE: L/S SPINE MIN 4 VIEWS 10/02/2024 REASON FOR EXAM: LUMBER RADICULOPATHY TECHNIQUE: Standing AP view(s) of the thoracic and lumbar spine. COMPARISON: None FINDINGS: Five views of the lumbosacral spine were obtained and demonstrate 5 lumbar-type vertebral bodies below the last set of paired ribs. The vertebral body heights are within normal limits. There is approximately 2 mm of retrolisthesis of L2 in relationship to L3. Disc space narrowing is noted involving the L2-L3, L3-L4, L4-L5 and L5-S1 discs. There is some minimal bony encroachment on the neural foramina at these levels. No spondylolysis seen. Very mild degenerative changes of the lumbar spine are noted. There is very subtle loss of the normal lordotic lumbar curvature. Sacrum is unremarkable. Moderate arteriosclerotic vascular disease is seen involving the abdominal aorta. RAD/L/S Spine Min 4 Views IMPRESSION: Mild degenerative changes of the lumbar spine. Loss of the normal lordotic lumbar curvature. Degenerative disc disease involving L2-L3, L3-L4, L4-L5 and L5-S1 disc. Arteriosclerotic vascular disease of the aorta. Reading Location: [id number]
== END | disposition home or self-care (01) ==
LOC: RAD 15:27
PROVIDERS: PCP Family Medicine; Referring Provider Anesthesiology Pain Medicine; Visit Provider Anesthesiology Pain Medicine
DX: M54.16 Radiculopathy, lumbar region (principal)
CPT/HCPCS: 72110

== ENCOUNTER → 2024-10-21 | Outpatient (CLI) | payer MEDICARE, SELFPAY ==
--- NOTE | 2024-10-21 14:54 | MRI_ITS ---
PROCEDURE: SPINE LUMBAR (ROUTINE) 10/21/2024 REASON FOR EXAM: RADICULOPATHY IN LUMBAR REGION TECHNIQUE: Multiplanar and multisequence images were obtained without IV contrast administration. COMPARISON: May 30, 2018 FINDINGS: There is grade 1 retrolisthesis at L5-S1, 0.4 cm. The vertebral body height is maintained. Vertebral body marrow signal is normal. There is fluid signal within the disc space at L5-S1, similar to the prior. Normal appearing facets are noted. The L1-L2 level: There is mild central disk protrusion. There is no lateral recess stenosis or foraminal stenosis. There is no critical central canal stenosis. The L2-L3 level: There is moderate central, mild right and left paracentral disc protrusion with increased signal in the margin of the disc consistent with a fissure. There is mild bilateral lateral recess effacement. There is mild bilateral foraminal narrowing secondary to disc protrusion. There is no central canal stenosis.. The L3-L4 level: There is moderate central and right and left paracentral disc and osteophyte protrusion. There is mild right and moderate left lateral recess effacement. There is mild bilateral foraminal narrowing secondary to disc protrusion and facet hypertrophy. There is mild central canal stenosis. The L4-L5 level: There is disc extrusion which extends beyond the L5 endplate, attached at the margin, measuring 0.45 x 0.7 by 1.3 cm. There is severe right and moderate left lateral recess stenosis. There is moderate right and mild left foraminal narrowing secondary to disc protrusion and facet hypertrophy. There is moderate central canal stenosis. The L5-S1 level: There is disc extrusion which extends beyond the L5 endplate, attached at the margin, measuring 0.35 x 0.6 by 0.7 cm. There is mild bilateral lateral recess stenosis. There is mild bilateral foraminal narrowing secondary to disc protrusion and facet hypertrophy. There is no central canal stenosis. The visualized conus shows normal signal characteristics. There is a 1.6 cm cyst partly visible in the left kidney. MRI/Spine Lumbar (Routine) IMPRESSION: There is a 1.6 cm cyst partly visible in the left kidney. There is grade 1 retrolisthesis at L5-S1, 0.4 cm. There is fluid signal within the disc space at L5-S1, similar to the prior. There is disc extrusion at L4-5 and L5-S1. There is mild central canal stenosis at L3-4, moderate central canal stenosis a t L4-5, with lateral recess and foraminal narrowing. Reading Location: [id number]
== END | disposition home or self-care (01) ==
LOC: OPUS 14:54 → OPMRI 15:05
PROVIDERS: PCP Family Medicine; Referring Provider Anesthesiology Pain Medicine; Visit Provider Anesthesiology Pain Medicine
DX: M54.16 Radiculopathy, lumbar region (principal)
CPT/HCPCS: 72148

== ENCOUNTER → 2024-11-07 | Outpatient (CLI) | payer MEDICARE, SELFPAY ==
[2024-11-07 10:46] LABS: PSA,Total - Annual Screen 8.59 ng/mL (0.02-4.00)
== END | disposition home or self-care (01) ==
LOC: MTLAB 08:56
PROVIDERS: PCP Family Medicine; Referring Provider Family Medicine; Visit Provider Family Medicine
DX: Z12.5 Encounter for screening for malignant neoplasm of prostate (principal)
CPT/HCPCS: 36415; 84153; G0103